=== PATIENT | male | born 1955 | race Caucasian/White ===

== ENCOUNTER 2017-01-31 13:28 | Inpatient (IN) | payer BC ==
--- NOTE | 2017-01-31 14:13 | ED ---
General Adult HPI - General Chief complaint: Chest Pain Stated complaint: Dr Sent/Numbness arm Time Seen by Provider: 01/31/17 13:35 Source: patient, RN notes reviewed Mode of arrival: wheelchair Limitations: no limitations - History of Present Illness Initial comments: 61-year-old male presents for evaluation one week of generalized weakness intermittent chest pain. Patient also complains of left facial numbness and left arm numbness. This has been present for approximately one week. Patient was seen by his primary care physician yesterday, had an EKG and was told to present to the emergency department for evaluation, patient declined and went to his tafe lecturer this morning. Emergency Services Dispatcher did send him in for evaluation of both chest pain and facial numbness and left arm weakness and numbness. Patient denies chest pain, evaluation. Denies shortness of breath. Denies abdominal pain. Denies nausea vomiting or diarrhea. He did have an episode of nausea on , none currently. No headache. - Related Data Home Medications Medication Instructions Recorded Confirmed Clopidogrel Bisulfate [Plavix] 75 mg PO DAILY 02/10/14 01/31/17 Furosemide [Lasix] 20 mg PO DAILY 02/10/14 01/31/17 HYDROcodone/APAP 7.5-325MG [Robertson 1 tab PO Q6HR PRN 02/10/14 01/31/17 7.5] Ibuprofen [Motrin] 800 mg PO Q8HR PRN 02/10/14 01/31/17 Lisinopril [Zestril] 5 mg PO HS 02/10/14 01/31/17 Simvastatin [Zocor] 40 mg PO HS 02/10/14 01/31/17 Carvedilol [Coreg] 12.5 mg PO BID 01/31/17 01/31/17 oxyCODONE-APAP 10-325MG [Percocet 1 tab PO DAILY PRN 01/31/17 01/31/17 10-325 mg] Allergies Allergy/AdvReac Type Severity Reaction Status Date / Time No Known Allergies Allergy Verified 01/31/17 13:54 Review of Systems ROS Statement: Those systems with pertinent positive or pertinent negative responses have been documented in the HPI. ROS Other: All systems not noted in ROS Statement are negative. Past Medical History Past Medical History: Hyperlipidemia, Hypertension, Myocardial Infarction (NM), Osteoarthritis (OA) Last Myocardial Infarction Date:: 2009 History of Any Multi-Drug Resistant Organisms: None Reported Past Surgical History: Back Surgery, Pacemaker Additional Past Surgical History / Comment(s): back surgery x 4 (fusion) [employer] SX. [facility] pacemaker with defibrillator TRIAL STIMULATOR LEAD PLACEMENT 03/07/14 Past Anesthesia/Blood Transfusion Reactions: No Reported Reaction Type of Cardiac Device: AICD Device Placement Date:: 2010 Past Psychological History: No Psychological Hx Reported Smoking Status: Current every day smoker Past Alcohol Use History: Rare Past Drug Use History: None Reported General Exam Limitations: no limitations General appearance: alert, in no apparent distress Head exam: Present: atraumatic, normocephalic Eye exam: Present: normal appearance, PERRL ENT exam: Present: normal exam Neck exam: Present: normal inspection. Absent: tenderness, meningismus Respiratory exam: Present: normal lung sounds bilaterally. Absent: respiratory distress Cardiovascular Exam: Present: regular rate, normal rhythm GI/Abdominal exam: Present: soft. Absent: distended, tenderness Extremities exam: Present: normal inspection, normal capillary refill, other ( Tenderness over the dorsal proximal forearm.). Absent: pedal edema, calf tenderness Neurological exam: Present: alert, oriented X3, CN II-XII intact, motor sensory deficit (Left-sided facial numbness, no weakness.) Psychiatric exam: Present: normal affect, normal mood Skin exam: Present: warm, dry, intact. Absent: cyanosis, diaphoretic Course Vital Signs 01/31/17 01/31/17 01/31/17 13:29 15:10 16:18 Temperature 97.7 F Pulse Rate 59 L 52 L 55 L Respiratory 18 18 18 Rate Blood Pressure 186/84 155/87 147/86 O2 Sat by Pulse 100 100 100 Oximetry EKG Findings - EKG Comments: EKG Findings:: EKG shows sinus bradycardia, T-wave abnormality in the lateral precordium, no ST segment elevation or depression, ventricular rate 52, para 160 , QRS duration 118, QTC 457 Medical Decision Making - Medical Decision Making 61-year-old male presenting with 2 complaints both chest pain and left arm pain , and left facial numbness and left arm weakness and numbness. Patient does have cardiac history, with ischemic cardiomyopathy. Chest x-ray is negative for acute findings, does have pacemaker defibrillator in place. CT of the brain is negative for hemorrhage. Laboratory studies reveal normal white blood cell count 9.5, hemoglobin 50.2, CK-MB mildly elevated 3.7, troponin 0.015. Given the combination of both chest pain and logical symptoms, CT angiography is obtained of both the chest and head and neck. CT angiography of head and neck reveals moderate bilateral carotid atherosclerotic change, no acute occlusion. No dissection. CT angiography of the chest negative for PE, negative for aortic dissection. Patient is chest pain-free while in the emergency department. EKG showed T- wave inversion in the lateral precordium, compared to EKG March 2014, unchanged. Patient is given aspirin before chest pain and for CVA symptoms. Patient will be admitted for further evaluation of both symptoms. Diagnosis: TIA/CVA, chest pain with abnormal EKG - Lab Data Result diagrams: 01/31/17 14:15 01/31/17 14:15 Lab Results 01/31/17 01/31/17 01/31/17 Range/Units 14:15 14:15 14:15 WBC 9.5 (3.8-10.6) k/uL RBC 4.80 (4.30-5.90) m/uL Hgb 15.2 (13.0-17.5) gm/dL Hct 44.7 (39.0-53.0) % MCV 93.1 (80.0-100.0) fL MCH 31.6 (25.0-35.0) pg MCHC 34.0 (31.0-37.0) g/dL RDW 13.8 (11.5-15.5) % Plt Count 190 (150-450) k/uL Neutrophils % 63 % Lymphocytes % 26 % Monocytes % 7 % Eosinophils % 2 % Basophils % 1 % Neutrophils # 6.0 (1.3-7.7) k/uL Lymphocytes # 2.4 (1.0-4.8) k/uL Monocytes # 0.7 (0-1.0) k/uL Eosinophils # 0.2 (0-0.7) k/uL Basophils # 0.0 (0-0.2) k/uL PT (9.0-12.0) sec INR (<1.2) APTT (22.0-30.0) sec Sodium 141 (137-145) mmol/L Potassium 4.2 (3.5-5.1) mmol/L Chloride 109 H (98-107) mmol/L Carbon Dioxide 23 (22-30) mmol/L Anion Gap 9 mmol/L BUN 13 (9-20) mg/dL Creatinine 0.78 (0.66-1.25) mg/dL Est GFR (MDRD) Af Amer >60 (>60 ml/min/1.73 sqM) Est GFR (MDRD) Non-Af >60 (>60 ml/min/1.73 sqM) Glucose 86 (74-99) mg/dL Calcium 9.2 (8.4-10.2) mg/dL Magnesium 2.0 (1.6-2.3) mg/dL Total Bilirubin 0.7 (0.2-1.3) mg/dL AST 22 (17-59) U/L ALT 29 (21-72) U/L Alkaline Phosphatase 36 L (38-126) U/L Total Creatine Kinase 165 (55-170) U/L CK-MB (CK-2) 3.7 H* (0.0-2.4) ng/mL CK-MB (CK-2) Rel Index 2.2 Troponin I 0.015 (0.000-0.034) ng/mL NT-Pro-B Natriuret Pep pg/mL Total Protein 6.8 (6.3-8.2) g/dL Albumin 4.2 (3.5-5.0) g/dL Urine Color Urine Appearance (Clear) Urine pH (5.0-8.0) Ur Specific Dunellen (1.001-1.035) Urine Protein (Negative) Urine Glucose (UA) (Negative) Urine Ketones (Negative) Urine Blood (Negative) Urine Nitrite (Negative) Urine Bilirubin (Negative) Urine Urobilinogen (<2.0) mg/dL Ur Leukocyte Esterase (Negative) 01/31/17 01/31/17 01/31/17 Range/Units 14:15 14:15 15:02 WBC (3.8-10.6) k/uL RBC (4.30-5.90) m/uL Hgb (13.0-17.5) gm/dL Hct (39.0-53.0) % MCV (80.0-100.0) fL MCH (25.0-35.0) pg MCHC (31.0-37.0) g/dL RDW (11.5-15.5) % Plt Count (150-450) k/uL Neutrophils % % Lymphocytes % % Monocytes % % Eosinophils % % Basophils % % Neutrophils # (1.3-7.7) k/uL Lymphocytes # (1.0-4.8) k/uL Monocytes # (0-1.0) k/uL Eosinophils # (0-0.7) k/uL Basophils # (0-0.2) k/uL PT 11.6 (9.0-12.0) sec INR 1.2 H (<1.2) APTT 27.2 (22.0-30.0) sec Sodium (137-145) mmol/L Potassium (3.5-5.1) mmol/L Chloride (98-107) mmol/L Carbon Dioxide (22-30) mmol/L Anion Gap mmol/L BUN (9-20) mg/dL Creatinine (0.66-1.25) mg/dL Est GFR (MDRD) Af Amer (>60 ml/min/1.73 sqM) Est GFR (MDRD) Non-Af (>60 ml/min/1.73 sqM) Glucose (74-99) mg/dL Calcium (8.4-10.2) mg/dL Magnesium (1.6-2.3) mg/dL Total Bilirubin (0.2-1.3) mg/dL AST (17-59) U/L ALT (21-72) U/L Alkaline Phosphatase (38-126) U/L Total Creatine Kinase (55-170) U/L CK-MB (CK-2) (0.0-2.4) ng/mL CK-MB (CK-2) Rel Index Troponin I (0.000-0.034) ng/mL NT-Pro-B Natriuret Pep 637 pg/mL Total Protein (6.3-8.2) g/dL Albumin (3.5-5.0) g/dL Urine Color Light Yellow Urine Appearance Clear (Clear) Urine pH 5.5 (5.0-8.0) Ur Specific Dunellen 1.008 (1.001-1.035) Urine Protein Negative (Negative) Urine Glucose (UA) Negative (Negative) Urine Ketones Negative (Negative) Urine Blood Negative (Negative) Urine Nitrite Negative (Negative) Urine Bilirubin Negative (Negative) Urine Urobilinogen <2.0 (<2.0) mg/dL Ur Leukocyte Esterase Negative (Negative) Disposition Clinical Impression: Chest pain, CVA (cerebral vascular accident) Disposition: ADMITTED IP TO THIS HOSP Condition: Stable Referrals: Porter Gonsales MD [Primary Care Provider] - 1-2 days Decision to Admit Reason: Admit from EC Decision Date: 01/31/17 Decision Time: 16:57
[2017-01-31 14:26] LABS: Basophils % (A) 1 %; CH 31.2; CHCM 33.6; Eosinophils # (A) 0.2 k/uL (0-0.7); Eosinophils % (A) 2 %; HCT 44.7 % (39.0-53.0); HGB 15.2 gm/dL (13.0-17.5); Luc # (Auto) 0.17; Luc % (Auto) 2; Lymphocytes # (A) 2.4 k/uL (1.0-4.8); Lymphocytes % (A) 26 %; MCH 31.6 pg (25.0-35.0); MCV 93.1 fL (80.0-100.0); Mean Platelet Volume 8.5; Monocytes # (A) 0.7 k/uL (0-1.0); Monocytes % (A) 7 %; Neutrophils % (A) 63 %; RDW 13.8 % (11.5-15.5); WBC 9.5 k/uL (3.8-10.6); WBC (Perox) 9.46
[2017-01-31 14:34] LABS: ALT 29 U/L (21-72); AST 22 U/L (17-59); Alkaline Phosphatase 36 U/L (38-126); Anion Gap 9 mmol/L; Blood Urea Nitrogen 13 mg/dL (9-20); Calcium 9.2 mg/dL (8.4-10.2); Carbon Dioxide 23 mmol/L (22-30); Chloride 109 mmol/L (98-107); Glucose 86 mg/dL (74-99); Non-African American GFR(MDRD) >60 (>60 ml/min/1.73 sqM); Potassium 4.2 mmol/L (3.5-5.1); Sodium 141 mmol/L (137-145); Total Bilirubin 0.7 mg/dL (0.2-1.3); Total Protein 6.8 g/dL (6.3-8.2)
[2017-01-31 14:37] LABS: INR 1.2 (<1.2); Partial Thromboplastin Time 27.2 sec (22.0-30.0); Prothrombin Time 11.6 sec (9.0-12.0)
--- NOTE | 2017-01-31 14:51 | XR ---
EXAMINATION TYPE: XR chest 2V DATE OF EXAM: 01/31/2017 COMPARISON: NONE TECHNIQUE: PA and lateral views submitted. HISTORY: Chest pain FINDINGS: The lungs are clear and there is no pneumothorax, pleural effusion, or focal pneumonia. Cardiac device and thoracic spine stimulator device noted. Arthropathy of the shoulders. No overt too lure. IMPRESSION: 1. No acute process.
--- NOTE | 2017-01-31 14:55 | CT ---
EXAMINATION TYPE: CT brain wo con DATE OF EXAM: 01/31/2017 COMPARISON: 05/22/2015 HISTORY: 61-year-old male weakness, fatigue and Left sided facial and arm numbness TECHNIQUE: Examination was done in axial plane without intravenous contrast. Coronal and sagittal r econstructions performed. CT DLP: 1072.3 mGycm Automated exposure control for dose reduction was used. FINDINGS: There is no evidence of acute intracranial hemorrhage, acute ischemic changes, mass, mass-effect, or extra-axial fluid collection. There is no effacement of cerebral sulci or basal subarachnoid cister ns. There is no hydrocephalus. There is no midline shift. Wynne-white matter distinction is preserv ed. Similar bifrontal cerebral cortical volume loss. Some mucus and mucosal thickening within the left frontal sinus and ethmoid air cells increased from prior. Mastoid air cells well pneumatized. Orbits and globes appear intact. IMPRESSION: 1. No acute intracranial abnormality seen. Similar bifrontal cerebral atrophy. 2. New mild to moderate ethmoid and left frontal sinus disease.
[2017-01-31 14:57] LABS: Troponin I 0.015 ng/mL (0.000-0.034)
[2017-01-31 14:58] LABS: Creatine Kinase MB 3.7 ng/mL (0.0-2.4)
[2017-01-31 15:14] LABS: Appearance,Urine Clear (Clear); Bilirubin,Urine Negative (Negative); Glucose,Urine (UA) Negative (Negative); Ketones,Urine Negative (Negative); Leukocyte Esterase,Urine Negative (Negative); Nitrite,Urine Negative (Negative); PH, Urine 5.5 (5.0-8.0); Protein,Urine Negative (Negative); Specific Gravity,Urine 1.008 (1.001-1.035); UA Billing (MACRO vs. MICRO) CHEM; Urobilinogen,Urine <2.0 mg/dL (<2.0)
[2017-01-31] MEDS ORDERED: ASPIRIN 325 MG TAB PO STA (15:28)
[2017-01-31] MEDS: RX INFO: IV CONTRAST WAS GIVEN 1 EACH MISC MISCELLANE PRN ×2 (15:37→15:38)
--- NOTE | 2017-01-31 16:41 | CT ---
EXAMINATION TYPE: CT angio chest DATE OF EXAM: 01/31/2017 COMPARISON: NONE HISTORY: 61-year-old male Left sided numbness. TECHNIQUE: Contiguous axial scanning of the chest performed with IV Contrast, patient injected with 8 0 mL of Omnipaque 350. Coronal/sagittal MIP reconstructions performed. CT DLP: 601.00 mGycm Automated exposure control for dose reduction was used. FINDINGS: Left anterior chest wall AICD generator with right atrial and right ventricular leads. Spinal stimula tor array centered along the mid to lower thoracic spinal canal. Heart is upper limits of normal in size without pericardial effusion. Coronary vessel calcifications are present and are remarkable for coronary artery disease. Ectasia of the upper descending thoracic aorta 3.1 cm with mild atherosclerotic arch calcifications. Scattered nonenlarged mediastinal lymph nodes are present. No thoracic lymphadenopathy by CT size cri teria. Small lipoma in the right serratus anterior measuring approximately 3.3 cm. Satisfactory opacification of the pulmonary arterial system with motion artifacts limiting some of th e subsegmental basilar left lower lobe branches. Mild to moderate diffuse bronchial wall thickening and mild emphysematous change in the upper lungs. Mild dependent atelectasis. No consolidation or pleural effusion. Visualized upper abdomen shows no gross abnormality. Bones: No osseous destructive process. IMPRESSION: 1. SOME MOTION ARTIFACTS . A COUPLE OF THE SUBSEGMENTAL BASILAR LEFT LOWER LOBE PULMONARY ARTERIAL BR ANCHES ARE LIMITED. OTHERWISE, NO EVIDENCE FOR PULMONARY EMBOLUS. 2. COPD WITH MILD EMPHYSEMA BUT WITH A PROMINENT COMPONENT OF ACUTE OR CHRONIC BRONCHITIS.
--- NOTE | 2017-01-31 16:50 | CT ---
EXAMINATION TYPE: CT angio head neck DATE OF EXAM: 01/31/2017 COMPARISON: NONE HISTORY: 61-year-old male Left sided numbness. TECHNIQUE: Contiguous axial scanning of the head and neck performed with IV Contrast, patient injecte d with 65 mL of Omnipaque 350. Coronal/sagittal MIP reconstructions performed. 3-D reconstructions ge nerated on a dedicated independent workstation. CT DLP: 538.00 mGycm Automated exposure control for dose reduction was used. FINDINGS: Head: The overall degree of intracranial arterial opacification is limited. No occlusion of the internal ca rotid, vertebral, or basilar arteries. Detailed assessment of the SORIN, MCA, and CLOTH PAINTER branches is limit ed due to the degree of opacification and adjacent venous contamination. No obvious aneurysmal change is seen though assessment is limited. NECK: Mild atherosclerotic arch calcifications. Arch vessel origins are patent. Limited assessment of the left vertebral artery origin. Some atherosclerotic calcification is present here. The vertebral arteries appear codominant. There is excessive venous contamination limiting kishor luation. The right common carotid artery is patent Moderate atherosclerotic changes at the right carotid bifurcation resulting in less than 50% narrowin g of the right carotid bulb The left common carotid artery is patent. Only mild atherosclerotic change at the left carotid bifurc ation without significant stenosis. Hypertrophy of the left greater than right lingual tonsils. IMPRESSION: NECK: 1. MODERATE ATHEROSCLEROTIC CHANGE OF THE RIGHT CAROTID BIFURCATION WITH MILD, LESS THAN 50% PROXIMAL RIGHT ICA STENOSIS. 2. MILD ATHEROSCLEROTIC CHANGE AT THE LEFT CAROTID BIFURCATION WITHOUT SIGNIFICANT LEFT ICA STENOSIS. HEAD: 3. LIMITED ASSESSMENT DUE TO THE DEGREE OF OPACIFICATION AND PROMINENT ADJACENT VENOUS CONTAMINATION. 4. NO LARGE VESSEL ICA, VERTEBRAL, OR BASILAR ARTERY OCCLUSION.
[2017-01-31] MEDS ORDERED: oxyCODONE-APAP 10-325MG 1 EACH TAB PO PRN (16:57)
[2017-01-31] MEDS: CARVEDILOL 12.5 MG TAB PO SCH (18:10)
[2017-01-31] MEDS: LISINOPRIL 5 MG TAB PO SCH (19:55)
[2017-01-31] MEDS: ATORVASTATIN 20 MG TAB PO SCH (19:55)
--- NOTE | 2017-01-31 22:56 | CONS ---
CONSULTATION DATE OF CONSULTATION: 01/31/2017. CHIEF COMPLAINT: Left-sided numbness. HISTORY OF PRESENT ILLNESS: Mr. Andres is a pleasant 61-year-old, male, who is being evaluated by the Neurology Service per the request of Dr. Gonsales for left-sided numbness. The patient started having symptoms of fatigue and atypical chest pain approximately 1 week ago. He was seen by Dr. Gonsales who recommended inpatient workup but the patient did not go to the emergency room. He then saw his java solutions architect and he was still having similar symptoms, but he then developed numbness and tingling on his left face and left upper extremity. He was advised to go to the emergency room at that time. He did arrive to [facility] Emergency Room today and he was still complaining of numbness and tingling that comes and goes involving his left face and left upper extremity. The patient does have history of myocardial infarction and is already on Plavix and aspirin. He does have a pacemaker/defibrillator implanted. A CT scan of the brain was done which showed no acute abnormalities. Bifrontal atrophy was seen. A CT angiogram of the brain was done, which showed no significant abnormalities. A CT angiogram of the neck was done which showed less than 50% stenosis involving the right internal carotid artery and no stenosis on the left side. His CBC, INR, comprehensive metabolic profile, cardiac enzymes and urinalysis were done and they were all normal except his INR was slightly elevated at 1.2. At the time of my evaluation, the patient is lying in his bed and appears to be in no acute distress. He continues to have occasional numbness on his left face mainly but he states that the intensity has improved. He denies any headache or dizziness. The patient has risk factors for strokes include his gender, tobacco dependence, dyslipidemia, history of myocardial infarction, history of hypertension. PAST MEDICAL HISTORY: Past medical history myocardial infarction, history of pacemaker/defibrillator implant, osteoarthritis, chronic low back pain, dyslipidemia, hypertension, history of lumbar spine surgeries, history of spinal cord stimulator implantation. SOCIAL HISTORY: The patient smokes 1 pack of cigarettes daily. He rarely drinks alcohol. Denies any drug use. FAMILY HISTORY: Noncontributory. HOME MEDICATIONS: Reviewed in the chart. ALLERGIES: No known drug allergies. REVIEW OF SYSTEMS: CONSTITUTIONAL: Positive for fatigue. EYES: Negative. ENT: Negative. CARDIOVASCULAR: As mentioned above. RESPIRATORY: Negative. NEUROLOGICAL: As mentioned above. GASTROINTESTINAL: Negative. GENITOURINARY: Negative. PSYCHIATRIC: Negative. ENDOCRINE: Negative. DERMATOLOGICAL: Negative. MUSCULOSKELETAL: Positive for chronic low back pain. PHYSICAL EXAM: Vital signs show a temperature of 98.2, pulse 64, respiration 18, blood pressure 155/88. GENERAL APPEARANCE: The patient is a well-developed male, who appears to be in no acute distress. HEENT: Normocephalic, atraumatic, no facial asymmetry is seen. NECK: Supple with no masses felt. CARDIOVASCULAR: Regular rate and rhythm. ABDOMEN: Nontender nondistended. Extremities showed no edema or clubbing. Neurological exam the patient is alert aware and oriented x3. Speech and language are normal. Strength is full in all 4 extremities. Sensory exam was normal to light touch in bilateral upper extremity and in the left lower extremity. He did have a reduced light touch sensation on the right lower extremity which is chronic from his lumbar spine history. No facial asymmetry is seen on cranial nerve testing and no sensory deficit is noticed on his face. No tremors or seizure-like activity is seen. No dysmetria is noticed on [id number]-finger testing. IMPRESSION: 1. Acute ischemic stroke. 2. Left-sided numbness. 3. Atypical chest pain. 4. Tobacco dependence. 5. Chronic low back pain. 6. Dyslipidemia. RECOMMENDATION: The patient's symptoms are consistent with an acute ischemic stroke. His CT scan of the brain showed no acute findings. He is unable to undergo any MRI imaging due to history of pacemaker implantation. Continue Plavix and aspirin. Continue IV hydration as tolerated. I will order a fasting lipid panel, EEG, and serum homocystine level. No significant stenosis was seen on his CT angiogram of the neck. The patient was counseled extensively on tobacco cessation. I discussed with him various treatment options regarding his chronic pain syndrome. Continue the rest of your current workup and management. I will continue to follow with you. Further recommendations to follow. Thank you, Dr. Gonsales for allowing me to participate in the care of your patient. If you have any questions, please feel free to contact me. MMDALLAS / IJN: [id number] /
[2017-02-01] MEDS: CARVEDILOL 12.5 MG TAB PO SCH ×2 (06:20→17:33)
[2017-02-01 06:30] LABS: Basophils % (A) 0 %; CH 31.5; CHCM 32.8; Eosinophils # (A) 0.2 k/uL (0-0.7); Eosinophils % (A) 2 %; HCT 42.2 % (39.0-53.0); HDW 2.25; HGB 13.7 gm/dL (13.0-17.5); Luc # (Auto) 0.21; Luc % (Auto) 3; Lymphocytes % (A) 27 %; MCH 31.2 pg (25.0-35.0); MCHC 32.4 g/dL (31.0-37.0); MCV 96.3 fL (80.0-100.0); Mean Platelet Volume 8.4; Monocytes # (A) 0.6 k/uL (0-1.0); Monocytes % (A) 8 %; Neutrophils # (A) 4.4 k/uL (1.3-7.7); Neutrophils % (A) 59 %; RBC 4.38 m/uL (4.30-5.90); RDW 13.6 % (11.5-15.5); WBC 7.4 k/uL (3.8-10.6); WBC (Perox) 7.92
[2017-02-01 07:02] LABS: ALT 26 U/L (21-72); AST 17 U/L (17-59); Alkaline Phosphatase 32 U/L (38-126); Anion Gap 5 mmol/L; Blood Urea Nitrogen 15 mg/dL (9-20); Calcium 8.8 mg/dL (8.4-10.2); Carbon Dioxide 25 mmol/L (22-30); Chloride 110 mmol/L (98-107); Cholesterol 116 mg/dL (<200); Glucose 90 mg/dL (74-99); HDL Cholesterol 33 mg/dL (40-60); Magnesium 1.9 mg/dL (1.6-2.3); Non-African American GFR(MDRD) >60 (>60 ml/min/1.73 sqM); Potassium 4.3 mmol/L (3.5-5.1); Sodium 140 mmol/L (137-145); Total Bilirubin 0.4 mg/dL (0.2-1.3); Total Protein 5.8 g/dL (6.3-8.2)
--- NOTE | 2017-02-01 07:47 | P.HPIM ---
History of Present Illness H&P Date: 02/01/17 Chief Complaint: Facial numbness and left arm weakness with chest discomfort This is a history and physical on a 61-year-old white male who saw me 2 days ago in the office complaining of chest fluttering and intermittent weakness for the last week. EKG was done which didn't show ST changes. The patient was advised to go to the emergency room but declined. 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 The patient was complaining of facial numbness and left arm weakness. Evaluation in the patient is now to admit the patient. Neurology and cardiology are now been consulted. The patient states slight improvement. But has been worried about his facial numbness. Appreciate consultants input. No significant nausea or vomiting. No diaphoresis stated. The patient has chronic history of defibrillator placement with chronic back pain. Review of Systems Constitutional: Denies chills, Denies fever Eyes: denies blurred vision, denies pain Ears, nose, mouth and throat: Denies headache, Denies sore throat Cardiovascular: Reports chest pain, Denies dyspnea on exertion, Denies edema, Denies orthopnea Respiratory: Denies cough Gastrointestinal: Denies abdominal pain, Denies diarrhea, Denies nausea, Denies vomiting Musculoskeletal: Reports low back pain Integumentary: Denies pruritus, Denies rash Neurological: Reports numbness, Denies confusion, Denies convulsions, Denies double vision Endocrine: Denies fatigue, Denies weight change Past Medical History Past Medical History: Hyperlipidemia, Hypertension, Myocardial Infarction (MD), Osteoarthritis (OA) Additional Past Medical History / Comment(s): "POST LAMINECTOMY SYNDROME" CHRONIC BACK PAIN, LUMBAR DDD Last Myocardial Infarction Date:: 2009 History of Any Multi-Drug Resistant Organisms: None Reported Past Surgical History: AICD, Back Surgery, Pacemaker Additional Past Surgical History / Comment(s): back surgery x 4 (fusion) LASIX EYE SX. [facility] [employer] pacemaker with defibrillator PLACEMENT OF NEURO STIMULATOR AND - had battery change on stimulator 2015, PAIN CLINIC PROCEDURES Past Anesthesia/Blood Transfusion Reactions: Motion Sickness Type of Cardiac Device: AICD Device Placement Date:: 2010 Smoking Status: Current every day smoker - Past Family History Mother Family Medical History: Diabetes Mellitus Father Family Medical History: Myocardial Infarction (MD) Additional Family Medical History / Comment(s): DAD FROM [place] WHEN PT WAS ONLY 2 MONTHS OLD. Medications and Allergies Home Medications Medication Instructions Recorded Confirmed Type Clopidogrel Bisulfate [Plavix] 75 mg PO DAILY 02/10/14 01/31/17 History Furosemide [Lasix] 20 mg PO DAILY 02/10/14 01/31/17 History HYDROcodone/APAP 7.5-325MG [[place] 1 tab PO Q6HR PRN 02/10/14 01/31/17 History 7.5] Ibuprofen [Motrin] 800 mg PO Q8HR PRN 02/10/14 01/31/17 History Lisinopril [Zestril] 5 mg PO HS 02/10/14 01/31/17 History Simvastatin [Zocor] 40 mg PO HS 02/10/14 01/31/17 History Carvedilol [Coreg] 12.5 mg PO BID 01/31/17 01/31/17 History oxyCODONE-APAP 10-325MG [Percocet 1 tab PO DAILY PRN 01/31/17 01/31/17 History 10-325 mg] Allergies Allergy/AdvReac Type Severity Reaction Status Date / Time No Known Allergies Allergy Verified 01/31/17 13:54 Physical Exam Vitals: Vital Signs Temp Pulse Pulse Resp BP BP Pulse Ox 02/01/17 04:00 96.9 F L 60 16 126/71 96 02/01/17 00:00 97.1 F L 55 L 16 112/61 100 01/31/17 20:00 96.9 F L 66 18 120/67 98 01/31/17 17:57 96.8 F L 59 L 18 151/78 97 01/31/17 17:25 98.2 F 64 18 155/88 98 01/31/17 16:18 55 L 18 147/86 100 01/31/17 15:10 52 L 18 155/87 100 01/31/17 13:29 97.7 F 59 L 18 186/84 100 Intake and Output 01/31/17 02/01/17 02/01/17 22:59 06:59 14:59 Intake Total 266 300 Balance 266 300 Intake: Oral 266 300 Other: Voiding Method Toilet Toilet Urinal Urinal Weight 92.1 kg - Constitutional General appearance: no acute distress - EENT Eyes: EOMI - Neck Neck: no lymphadenopathy - Respiratory Respiratory: bilateral: CTA - Cardiovascular Rhythm: regular Heart sounds: normal: S1, S2 - Gastrointestinal General gastrointestinal: soft, no tenderness - Integumentary Integumentary: no cellulitis - Neurologic Neurologic: CNII-XII intact - Musculoskeletal Musculoskeletal: no generalized weakness - Psychiatric Psychiatric: A&O x's 3, appropriate affect, intact judgment & insight Results CBC & Chem 7: 02/01/17 05:46 02/01/17 05:46 Labs: Abnormal Lab Results - Last 24 Hours (Table) 01/31/17 01/31/17 01/31/17 Range/Units 14:15 14:15 14:15 INR 1.2 H (<1.2) Chloride 109 H (98-107) mmol/L Alkaline Phosphatase 36 L (38-126) U/L CK-MB (CK-2) 3.7 H* (0.0-2.4) ng/mL Total Protein (6.3-8.2) g/dL Albumin (3.5-5.0) g/dL HDL Cholesterol (40-60) mg/dL 02/01/17 Range/Units 05:46 INR (<1.2) Chloride 110 H (98-107) mmol/L Alkaline Phosphatase 32 L (38-126) U/L CK-MB (CK-2) (0.0-2.4) ng/mL Total Protein 5.8 L (6.3-8.2) g/dL Albumin 3.4 L (3.5-5.0) g/dL HDL Cholesterol 33 L (40-60) mg/dL Assessment and Plan (1) Chest pain Current Visit: Yes Status: Acute Code(s): R07.9 - CHEST PAIN, UNSPECIFIED SNOMED Code(s): 90578577 (2) History of myocardial infarct at age less than 60 years Current Visit: No Status: Acute Code(s): I25.2 - OLD MYOCARDIAL INFARCTION SNOMED Code(s): 275673167 (3) Hypertension Current Visit: No Status: Acute Code(s): I10 - ESSENTIAL (PRIMARY) HYPERTENSION SNOMED Code(s): 37358595 (4) Post laminectomy syndrome Current Visit: No Status: Acute Code(s): M96.1 - POSTLAMINECTOMY SYNDROME, NOT ELSEWHERE CLASSIFIED SNOMED Code(s): 85209735 Plan: Rule out myocardial infraction. Neurology and cardiology consulted. Question element of TIA versus CVA. History of post laminectomy syndrome. Continue current regimen medication with anticoagulation See orders otherwise. The patient is otherwise a full code.
--- NOTE | 2017-02-01 07:57 | P.CRDCN ---
History of Present Illness Consult date: 02/01/17 Chief complaint: chest discomfort History of present illness: this is a pleasant 61-year-old gentleman who sees Dr. Russ in the office as an outpatient with known CAD, severe ischemic cardiomyopathy and status post ICD , hypertension, and dyslipidemia, was referred directly from Dr. Berry to the hospital for further evaluation off left sided numbness/weakness. The patient was in the office yesterday for a follow-up visit and he was complaining of intermittent episodes of left sided weakness associated with left we fascial numbness. Beside that he was experiencing very mild and atypical chest discomfort. In view of that he was referred directly to the hospital. The cardiac workup including the EKG showed sinus rhythm with old inferior SD and diffuse ST changes seems to be the same as before. The cardiac enzymes were checked and came in to be unremarkable. The chest x-ray did not show any acute abnormality. The CTA of the chest did not show any evidence of PE. The patient was seen by a neurologist and he was diagnosed with acute stroke. He was on aspirin and Plavix and both are continued. There is no indication that the patient has any history of atrial fibrillation and he is not on any anticoagulation. He is on dual antiplatelet therapy Past Medical History Past Medical History: Hyperlipidemia, Hypertension, Myocardial Infarction (SD), Osteoarthritis (OA) Additional Past Medical History / Comment(s): "POST LAMINECTOMY SYNDROME" CHRONIC BACK PAIN, LUMBAR DDD Last Myocardial Infarction Date:: 2009 History of Any Multi-Drug Resistant Organisms: None Reported Past Surgical History: AICD, Back Surgery, Pacemaker Additional Past Surgical History / Comment(s): back surgery x 4 (fusion) LASIX EYE SX. ST [employer]MA pacemaker with defibrillator PLACEMENT OF NEURO STIMULATOR AND - had battery change on stimulator 2015, PAIN CLINIC PROCEDURES Past Anesthesia/Blood Transfusion Reactions: Motion Sickness Type of Cardiac Device: AICD Device Placement Date:: 2010 Smoking Status: Current every day smoker - Past Family History Mother Family Medical History: Diabetes Mellitus Father Family Medical History: Myocardial Infarction (SD) Additional Family Medical History / Comment(s): DAD FROM [place] WHEN PT WAS ONLY 2 MONTHS OLD. Medications and Allergies Home Medications Medication Instructions Recorded Confirmed Type Clopidogrel Bisulfate [Plavix] 75 mg PO DAILY 02/10/14 01/31/17 History Furosemide [Lasix] 20 mg PO DAILY 02/10/14 01/31/17 History HYDROcodone/APAP 7.5-325MG [[place] 1 tab PO Q6HR PRN 02/10/14 01/31/17 History 7.5] Ibuprofen [Motrin] 800 mg PO Q8HR PRN 02/10/14 01/31/17 History Lisinopril [Zestril] 5 mg PO HS 02/10/14 01/31/17 History Simvastatin [Zocor] 40 mg PO HS 02/10/14 01/31/17 History Carvedilol [Coreg] 12.5 mg PO BID 01/31/17 01/31/17 History oxyCODONE-APAP 10-325MG [Percocet 1 tab PO DAILY PRN 01/31/17 01/31/17 History 10-325 mg] Allergies Allergy/AdvReac Type Severity Reaction Status Date / Time No Known Allergies Allergy Verified 01/31/17 13:54 Physical Exam Vitals: Vital Signs Temp Pulse Pulse Resp BP BP Pulse Ox 02/01/17 04:00 96.9 F L 60 16 126/71 96 02/01/17 00:00 97.1 F L 55 L 16 112/61 100 01/31/17 20:00 96.9 F L 66 18 120/67 98 01/31/17 17:57 96.8 F L 59 L 18 151/78 97 01/31/17 17:25 98.2 F 64 18 155/88 98 01/31/17 16:18 55 L 18 147/86 100 01/31/17 15:10 52 L 18 155/87 100 01/31/17 13:29 97.7 F 59 L 18 186/84 100 Intake and Output 01/31/17 02/01/17 02/01/17 22:59 06:59 14:59 Intake Total 266 300 Balance 266 300 Intake: Oral 266 300 Other: Voiding Method Toilet Toilet Urinal Urinal Weight 92.1 kg - Constitutional General appearance: no acute distress - Respiratory Respiratory: bilateral: CTA - Cardiovascular Rhythm: regular Heart sounds: normal: S1, S2 Results 02/01/17 05:46 02/01/17 05:46 Cardiac Enzymes 01/31/17 01/31/17 01/31/17 Range/Units 14:15 14:15 19:55 AST 22 (17-59) U/L CK-MB (CK-2) 3.7 H* (0.0-2.4) ng/mL Troponin I 0.015 0.018 (0.000-0.034) ng/mL 02/01/17 02/01/17 02/01/17 Range/Units 02:14 05:46 05:46 AST 17 (17-59) U/L CK-MB (CK-2) (0.0-2.4) ng/mL Troponin I 0.022 0.023 (0.000-0.034) ng/mL Coagulation 01/31/17 Range/Units 14:15 PT 11.6 (9.0-12.0) sec APTT 27.2 (22.0-30.0) sec Lipids 02/01/17 Range/Units 05:46 Triglycerides 99 (<150) mg/dL Cholesterol 116 (<200) mg/dL HDL Cholesterol 33 L (40-60) mg/dL CBC 01/31/17 02/01/17 Range/Units 14:15 05:46 WBC 9.5 7.4 (3.8-10.6) k/uL RBC 4.80 4.38 (4.30-5.90) m/uL Hgb 15.2 13.7 (13.0-17.5) gm/dL Hct 44.7 42.2 (39.0-53.0) % Plt Count 190 175 (150-450) k/uL Comprehensive Metabolic Panel 01/31/17 02/01/17 Range/Units 14:15 05:46 Sodium 141 140 (137-145) mmol/L Potassium 4.2 4.3 (3.5-5.1) mmol/L Chloride 109 H 110 H (98-107) mmol/L Carbon Dioxide 23 25 (22-30) mmol/L BUN 13 15 (9-20) mg/dL Creatinine 0.78 0.85 (0.66-1.25) mg/dL Glucose 86 90 (74-99) mg/dL Calcium 9.2 8.8 (8.4-10.2) mg/dL AST 22 17 (17-59) U/L ALT 29 26 (21-72) U/L Alkaline Phosphatase 36 L 32 L (38-126) U/L Total Protein 6.8 5.8 L (6.3-8.2) g/dL Albumin 4.2 3.4 L (3.5-5.0) g/dL Current Medications Generic Name Dose Route Start Last Admin Trade Name Bowen PRN Reason Stop Dose Admin Aspirin 325 mg 02/01/17 09:00 Aspirin PO DAILY [facility] Atorvastatin Calcium 20 mg 01/31/17 21:00 01/31/17 19:55 Lipitor PO 20 mg HS LARA Administration Carvedilol 12.5 mg 01/31/17 17:30 02/01/17 06:20 Coreg PO 12.5 mg BID-W/MEALS LARA Administration Clopidogrel Bisulfate 75 mg 02/01/17 09:00 Plavix PO DAILY [facility] Furosemide 20 mg 02/01/17 09:00 Lasix PO DAILY [facility] Lisinopril 5 mg 01/31/17 21:00 01/31/17 19:55 Zestril PO 5 mg HS LARA Administration Miscellaneous Information 1 each 01/31/17 15:28 01/31/17 15:38 Rx Info: Iv Contrast Was Given MISCELLANE 02/02/17 15:28 1 each DAILY PRN Administration Per Protocol Oxycodone/Acetaminophen 1 each 01/31/17 16:57 Percocet 10-325 PO DAILY PRN Moderate Pain Intake and Output 01/31/17 02/01/17 02/01/17 22:59 06:59 14:59 Intake Total 266 300 Balance 266 300 Intake: Oral 266 300 Other: Voiding Method Toilet Toilet Urinal Urinal Weight 92.1 kg 02/01/17 05:46 02/01/17 05:46 Assessment and Plan Assessment: this is a pleasant 61-year-old gentleman was known CAD, severe ischemic cardiomyopathy, as well as hypertension and dyslipidemia was admitted to the hospital with left sided weakness intermittently. He was diagnosed with acute stroke. Initial computed tomography scan did not show any acute abnormalities. Beside that he was experiencing very mild and atypical chest discomfort. Overall the cardiac workup came in to be unremarkable. I would not proceed with any further cardiac workup regarding the chest discomfort at this point in the process of an acute stroke. We will obtain an echocardiogram was Doppler. Obtain the previous medical records from the office. Anyway the chest discomfort was very mild and atypical. He is on dual antiplatelet therapy which we will continue. We'll continue following up with him.
[2017-02-01] MEDS: ASPIRIN 325 MG TAB PO SCH (08:34)
[2017-02-01] MEDS: FUROSEMIDE 20 MG TAB PO SCH (08:35)
[2017-02-01] MEDS: CLOPIDOGREL 75 MG TAB PO SCH (08:35)
--- NOTE | 2017-02-01 11:05 | ECHOF ---
Referral Reason:stroke MEASUREMENTS -------- HEIGHT: 172.7 cm WEIGHT: 92.1 kg BP: IVSd: 1.7 cm (0.6 - 1.1) LVIDd: 6.4 cm (3.9 - 5.3) LVPWd: 1.2 cm (0.6 - 1.1) IVSs: 2.1 cm LVIDs: 4.8 cm LVPWs: 1.4 cm LAESV Index (A-L): 38.29 ml/m Ao Diam: 3.2 cm (2.0 - 3.7) AV Cusp: 1.7 cm (1.5 - 2.6) LA Diam: 2.8 cm (2.7 - 3.8) EPSS: 2.1 cm MV E Reagan: 0.60 m/s MV DecT: 206 ms MV A Reagan: 0.57 m/s MV E/A Ratio: 1.06 RAP: 5.00 mmHg RVSP: 27.35 mmHg MV EF SLOPE: 108.76 mm/s (70 - 150) MV EXCURSION: 2.02 cm (> 18.000) FINDINGS -------- Sinus rhythm. Pacerwire seen in RV and RA. This was a technically adequate study. The left ventricle is moderately dilated. There is moderate concentric left ventricular hypertrophy . Overall left ventricular systolic function is severely impaired with, an EF between 20 - 25 %. Mid anterior LV wall motion is akinetic. Mid anteroseptal LV wall motion is akinetic. Apical an terior LV wall motion is akinetic. Apical septum LV wall motion is akinetic. Possible apical th rombus. The right ventricle is normal in size and function. LA is moderately dilated 34-39 ml/m2 The right atrium is normal in size. 1.5mg of Definity was utilized for enhancement of images The aortic valve is trileaflet, and appears structurally normal. No aortic stenosis or regurgitation. The mitral valve leaflets are mildly thickened. Moderate mitral regurgitation is present. Mild tricuspid regurgitation present. There is no evidence of pulmonary hypertension. There is no pulmonic regurgitation present. The mass is located in the apical portion of the left ventricle. The aortic root size is normal. Normal inferior vena cava with normal inspiratory collapse consistent with estimated right atrial pre ssure of 5 mmHg. There is no pericardial effusion. CONCLUSIONS -------- 1. Sinus rhythm. 2. Pacerwire seen in RV and RA. 3. This was a technically adequate study. 4. The left ventricle is moderately dilated. 5. There is moderate concentric left ventricular hypertrophy. 6. Overall left ventricular systolic function is severely impaired with, an EF between 20 - 25 %. 7. Mid anterior LV wall motion is akinetic. 8. Mid anteroseptal LV wall motion is akinetic. 9. Apical anterior LV wall motion is akinetic. 10. Apical septum LV wall motion is akinetic. 11. Possible apical thrombus. 12. LA is moderately dilated 34-39 ml/m2 13. 1.5mg of Definity was utilized for enhancement of images 14. The aortic valve is trileaflet, and appears structurally normal. No aortic stenosis or regurgitat ion. 15. The mitral valve leaflets are mildly thickened. 16. Mild tricuspid regurgitation present. 17. There is no evidence of pulmonary hypertension. 18. There is no pulmonic regurgitation present. 19. The mass is located in the apical portion of the left ventricle. 20. The aortic root size is normal. 21. Normal inferior vena cava with normal inspiratory collapse consistent with estimated right atrial pressure of 5 mmHg. 22. There is no pericardial effusion. STONE SPLITTER: Shannan Mendoza RDCS
--- NOTE | 2017-02-01 13:48 | P.PN ---
Subjective Progress Note Date: 02/01/17 Patient is a pleasant 61-year-old male who is being followed by the neurology service for left-sided numbness. Patient states symptoms of fatigue and atypical chest pain began approximately a week ago for which she saw cardiology for. Since then he had developed numbness and tingling in his left face and left upper extremity. He came to [facility] emergency room for further evaluation. Patient was taking Plavix and aspirin in the home setting due to history of myocardial infarction. He does have pacemaker/ defibrillator implanted. Computed tomography scan of the brain was done which showed no acute abnormalities. His CT angiogram of the brain was done which showed no significant abnormalities. A CT angiogram of the neck was also done which showed less than 50% stenosis in the right internal carotid artery and no stenosis on the left side. At the time of my evaluation, patient is resting comfortably in bed and appears to be in no acute distress. Patient continues to report occasional numbness in the left side of the face. Patient does have multiple risk factors for stroke including history of myocardial infarction, hypertension, tobacco dependence, and dyslipidemia. Objective - Vital Signs Vital signs: Vital Signs Temp 96.9 F L 02/01/17 12:00 Pulse 58 L 02/01/17 12:00 Resp 18 02/01/17 12:00 BP 138/73 02/01/17 12:00 Pulse Ox 98 02/01/17 12:00 Intake & Output 01/31/17 02/01/17 02/01/17 18:59 06:59 18:59 Intake Total 266 300 Output Total 825 Balance 266 300 -825 Weight 94.347 kg 92.1 kg Intake: Oral 266 300 Output: Urine 825 Other: Voiding Method Toilet Urinal - Exam PHYSICAL EXAM: GENERAL APPEARANCE: Patient is a well-developed, male who appears to be in no acute distress. HEENT: Normocephalic, atraumatic, no facial asymmetry is seen. Neck is supple with no masses felt. CARDIOVASCULAR: Regular rate and rhythm. ABDOMEN: Nontender, nondistended. EXTREMITIES: Show no edema or clubbing. NEUROLOGICAL EXAM: Patient is awake, alert, and oriented 3. Speech and language are normal. Strength is full in all 4 extremities. Sensory exam was normal to light touch in all 4 extremities except mildly decreased in the left lower extremity which is chronic from previous surgery. No facial asymmetry is seen on cranial nerve testing. No sensory deficit is noted on his face. No tremors or seizure-like activity is seen. - Labs CBC & Chem 7: 02/01/17 05:46 02/01/17 05:46 Labs: Abnormal Lab Results - Last 24 Hours (Table) 01/31/17 01/31/17 01/31/17 Range/Units 14:15 14:15 14:15 INR 1.2 H (<1.2) Chloride 109 H (98-107) mmol/L Alkaline Phosphatase 36 L (38-126) U/L CK-MB (CK-2) 3.7 H* (0.0-2.4) ng/mL Total Protein (6.3-8.2) g/dL Albumin (3.5-5.0) g/dL HDL Cholesterol (40-60) mg/dL 02/01/17 Range/Units 05:46 INR (<1.2) Chloride 110 H (98-107) mmol/L Alkaline Phosphatase 32 L (38-126) U/L CK-MB (CK-2) (0.0-2.4) ng/mL Total Protein 5.8 L (6.3-8.2) g/dL Albumin 3.4 L (3.5-5.0) g/dL HDL Cholesterol 33 L (40-60) mg/dL Assessment and Plan Plan: Impression: 1. Acute ischemic stroke 2. Left-sided numbness 3. Atypical chest pain 4. Chronic low back pain 5. Dyslipidemia 6. Tobacco dependence Recommendation: It does appear that patient suffered an acute ischemic stroke. Computed tomography scan of the brain showed no acute findings. As you recall, he is unable to undergo any MRI imaging due to history of pacemaker implantation. CT angiogram of the neck showed no significant stenosis. I recommend continuing Plavix and aspirin. His fasting lipid panel was normal except for low HDL of 33. Continue statin therapy. EEG and serum homocystine level results are pending. I discussed possible treatment options regarding his chronic pain syndrome which can be explored as an outpatient in the office setting. Continue current management. Continue physical therapy. I will continue to follow with you. Further recommendations to follow.
--- NOTE | 2017-02-01 19:49 | EEG ---
ELECTROENCEPHALOGRAM REPORT CHIEF COMPLAINT: Stroke. DESCRIPTION OF THE PROCEDURE: This EEG was performed using a 21-channel digital electroencephalograph, following international 10-20 system. DESCRIPTION OF THE RECORDING: From the beginning of the tracing, and with patient's eyes closed, the background rhythm was mostly consisting of 9 Hz alpha frequency in the posterior occipital leads. No obvious asymmetry is seen. Photic stimulation was performed with a good driving response seen. No pathological waves were elicited. Hyperventilation was not performed. Frequent movement artifacts are seen later in the tracing. The patient remains awake throughout the tracing. No epileptiform discharges were seen. His EKG lead showed a regular rate and rhythm. INTERPRETATION: This awake EEG can be considered within normal limits. There was no asymmetry seen. No epileptiform discharges were noticed. The absence of epileptiform discharges does not rule out the diagnosis of epilepsy; therefore clinical correlation is recommended. MMDALLAS / IJMirtha: [id number] /
[2017-02-01] MEDS: LISINOPRIL 5 MG TAB PO SCH (21:02)
[2017-02-01] MEDS: ATORVASTATIN 20 MG TAB PO SCH (21:02)
[2017-02-02] MEDS: CARVEDILOL 12.5 MG TAB PO SCH ×2 (06:31→16:59)
--- NOTE | 2017-02-02 07:28 | P.DS ---
Providers Date of admission: 01/31/17 16:46 Attending physician: Porter Gonsales Consults: 01/31/17 16:47 Consult Physician Urgent Consulting Provider: Alejo Bazzi Consult Reason/Comments: CVA/TIA Do you want consulting provider notified?: Yes Consult Physician Urgent Consulting Provider: Stas Villalobos Consult Reason/Comments: Chest pain, EKG changes Do you want consulting provider notified?: Yes, Notify in am Primary care physician: Porter Gonsales - Discharge Diagnosis(es) (1) Chest pain Current Visit: Yes Status: Acute (2) History of myocardial infarct at age less than 60 years Current Visit: No Status: Acute (3) Hypertension Current Visit: No Status: Acute (4) Post laminectomy syndrome Current Visit: No Status: Acute Hospital Course: This is a discharge summary on a 61-year-old white male essentially admitted for left facial numbness. He was felt to have CVA. But because of his history of pacemaker/AICD placement, he is unable have an MRI. CTA with CT of the head does not show significant abnormality. He is already on Plavix and aspirin. He will be discharged once cleared by neurology. Symptoms have not completely resolved but there waxing and waning. The patient will follow-up with me in approximately 3-4 days. Patient Condition at Discharge: Stable Plan - Discharge Summary Discharge Rx Participant: No New Discharge Prescriptions: No Action Ibuprofen [Motrin] 800 mg PO Q8HR PRN PRN Reason: Mild To Moderate Pain Simvastatin [Zocor] 40 mg PO HS Lisinopril [Zestril] 5 mg PO HS HYDROcodone/APAP 7.5-325MG [[place] 7.5] 1 tab PO Q6HR PRN PRN Reason: Moderate To Severe Pain Furosemide [Lasix] 20 mg PO DAILY Clopidogrel Bisulfate [Plavix] 75 mg PO DAILY oxyCODONE-APAP 10-325MG [Percocet 10-325 mg] 1 tab PO DAILY PRN PRN Reason: Pain Carvedilol [Coreg] 12.5 mg PO BID Discharge Medication List Clopidogrel Bisulfate [Plavix] 75 mg PO DAILY 02/10/14 [History] Furosemide [Lasix] 20 mg PO DAILY 02/10/14 [History] HYDROcodone/APAP 7.5-325MG [[place] 7.5] 1 tab PO Q6HR PRN 02/10/14 [History] Ibuprofen [Motrin] 800 mg PO Q8HR PRN 02/10/14 [History] Lisinopril [Zestril] 5 mg PO HS 02/10/14 [History] Simvastatin [Zocor] 40 mg PO HS 02/10/14 [History] Carvedilol [Coreg] 12.5 mg PO BID 01/31/17 [History] oxyCODONE-APAP 10-325MG [Percocet 10-325 mg] 1 tab PO DAILY PRN 01/31/17 [ History] Follow up Appointment(s)/Referral(s): Alejo Bazzi MD [STAFF PHYSICIAN] - 1 Week Porter Gonsales MD [Primary Care Provider] - 3 Days
[2017-02-02] MEDS: ASPIRIN 325 MG TAB PO SCH (08:00)
[2017-02-02] MEDS: FUROSEMIDE 20 MG TAB PO SCH (08:01)
[2017-02-02] MEDS: CLOPIDOGREL 75 MG TAB PO SCH (08:01)
--- NOTE | 2017-02-02 11:13 | P.PN ---
Subjective Progress Note Date: 02/02/17 Principal diagnosis: RASHAWN Is a pleasant 61-year-old gentleman who follows regularly with Dr. Dsouza in the office as an outpatient. He has a known history of coronary artery disease, severe ischemic cardiomyopathy with prior AICD implant, hypertension, hyperlipidemia, he was referred to the hospital from Dr. Berry because of evidence of left-sided numbness and weakness. Patient's EKG showed evidence of old inferior wall [place] with diffuse ST-T wave changes, similar to prior. Cardiac enzymes were checked and came back to be unremarkable. CTA did not reveal any evidence of a pulmonary embolism. Patient is also being followed here by neurology who felt the patient may have had an acute stroke. He cannot have an MRI performed because of AICD placement. At the time of my examination this morning, patient still has mild left-sided numbness, he is hemodynamically stable. Objective - Vital Signs Vital signs: Vital Signs Temp 97.0 F L 02/02/17 08:00 Pulse 54 L 02/02/17 08:00 Resp 18 02/02/17 08:00 BP 107/61 02/02/17 08:00 Pulse Ox 97 02/02/17 08:00 Intake & Output 02/01/17 02/02/17 02/02/17 18:59 06:59 18:59 Intake Total 200 600 Output Total 825 500 Balance -625 100 Weight 92.1 kg Intake: Oral 200 600 Output: Urine 825 500 Other: Voiding Method Toilet Toilet Urinal Urinal - Exam PHYSICAL EXAMINATION: HEENT: Head is atraumatic, normocephalic. Pupils equal, round. Neck is supple. There is no elevated jugular venous pressure. HEART EXAMINATION: Heart S1, S2 normal. No murmur or gallop heard. CHEST EXAMINATION: Lungs are clear to auscultation and precussion. No chest wall tenderness is noted on palpation or with deep breathing. ABDOMEN: Soft, nontender. Bowel sounds are heard. No organomegaly noted. EXTREMITIES: 2+ peripheral pulses with no evidence of peripheral edema and no calf tenderness noted. NEUROLOGIC patient is awake, alert and oriented -3. Mild left arm numbness. . - Labs CBC & Chem 7: 02/01/17 05:46 02/01/17 05:46 Assessment and Plan Plan: Assessment and plan #1 intermittent left-sided weakness, possible acute stroke. Initial CT did not reveal any acute abnormalities. #2 hypertension #3 atypical chest discomfort was unremarkable troponins and no significant EKG changes. #4 ischemic cardiomyopathy with prior AICD #5 coronary artery disease #6 hyperlipidemia Plan Echocardiogram with Doppler study was performed which revealed an ejection fraction of 20-25%. Possible apical thrombus. Hemodynamically stable. Patient cannot undergo an MRI because of his device, may require a KIKI to evaluate for possible thrombus. Further recommendations to follow. DNP note has been reviewed, I agree with a documented findings and plan of care. Patient was seen and examined.
--- NOTE | 2017-02-02 14:55 | P.PN ---
Progress Note - Text Progress Note Date: 02/02/17 This is an addendum to the progress note dictated earlier by cardiology, because of the suspicion of a possible apical thrombus on transthoracic echo along with the fact that the patient has a low ejection fraction, he was advised to be initiated on Coumadin. He was taking Plavix at home, no history of stent, taking it for coronary artery disease. We will discontinue the Plavix , continue the baby aspirin, and initiate the patient on Coumadin. This was all explained to the patient in detail. DNP note has been reviewed, I agree with a documented findings and plan of care. Patient was seen and examined.
--- NOTE | 2017-02-02 15:26 | P.PN ---
Subjective Progress Note Date: 02/02/17 Patient is a pleasant 61-year-old male who is being followed by the neurology service for left-sided numbness. Patient states symptoms of fatigue and atypical chest pain began approximately a week ago for which he saw cardiology for. Since then he had developed numbness and tingling in his left face and left upper extremity. He came to [facility] emergency room for further evaluation. Patient was taking Plavix and aspirin in the home setting due to history of myocardial infarction. He does have pacemaker/ defibrillator implanted. Computed tomography scan of the brain was done which showed no acute abnormalities. His CT angiogram of the brain was done which showed no significant abnormalities. A CT angiogram of the neck was also done which showed less than 50% stenosis in the right internal carotid artery and no stenosis on the left side. At the time of my evaluation, patient is resting comfortably in bed and appears to be in no acute distress. Patient continues to report occasional numbness in the left side of the face. Patient does have multiple risk factors for stroke including history of myocardial infarction, hypertension, tobacco dependence, and dyslipidemia. 02/02/2017 Patient is a pleasant 61-year-old male who is being followed by the neurology service for left-sided numbness. Patient states left-sided numbness is slowly resolving. Patient reports only minimal left facial numbness remains. As you recall, patient is unable to have an MRI due to AICD. Patient underwent trans-thoracic echocardiogram which revealed possible apical thrombus. Patient was started on Coumadin and Plavix was discontinued. CT angiogram of the brain showed no significant abnormalities. CT angiogram of the neck was also done which showed less than 50% stenosis in the right internal carotid artery and no stenosis on the left internal carotid artery. At the time of my evaluation, patient is resting comfortably in bed and appears to be in no acute distress. Objective - Vital Signs Vital signs: Vital Signs Temp 98.2 F 02/02/17 12:00 Pulse 57 L 02/02/17 12:00 Resp 18 02/02/17 12:00 BP 116/60 02/02/17 12:00 Pulse Ox 95 02/02/17 12:00 Intake & Output 02/01/17 02/02/17 02/02/17 18:59 06:59 18:59 Intake Total 200 600 200 Output Total 825 500 300 Balance -625 100 -100 Weight 92.1 kg Intake: Oral 200 600 200 Output: Urine 825 500 300 Other: Voiding Method Toilet Toilet Urinal Urinal # Voids 2 - Exam PHYSICAL EXAM: GENERAL APPEARANCE: Patient is a well-developed, male who appears to be in no acute distress. HEENT: Normocephalic, atraumatic, no facial asymmetry is seen. Neck is supple with no masses felt. CARDIOVASCULAR: Regular rate and rhythm. ABDOMEN: Nontender, nondistended. EXTREMITIES: Show no edema or clubbing. NEUROLOGICAL EXAM: Patient is awake, alert, and oriented 3. Speech and language are normal. Strength is full in all 4 extremities. Sensory exam was normal to light touch in all 4 extremities except mildly decreased in the left lower extremity which is chronic from previous spinal surgery. No facial asymmetry is seen on cranial nerve testing. No sensory deficit is noted on his face. No tremors or seizure-like activity is seen. - Labs CBC & Chem 7: 02/01/17 05:46 02/01/17 05:46 Assessment and Plan Plan: Impression: 1. Acute ischemic stroke 2. Left-sided numbness 3. Atypical chest pain 4. Chronic low back pain 5. Dyslipidemia 6. Tobacco dependence Recommendation: It does appear that patient suffered an acute ischemic stroke. Computed tomography scan of the brain showed no acute findings. As you recall, he is unable to undergo any MRI imaging due to history of pacemaker implantation. CT angiogram of the neck showed no significant stenosis. Possible apical thrombus was found on transthoracic echo. He will be started on Coumadin and continue aspirin per cardiology. His fasting lipid panel was normal except for low HDL of 33. Continue statin therapy. EEG was normal. Serum homocystine level is within normal limits. I discussed possible treatment options regarding his chronic pain syndrome which can be explored as an outpatient in the office setting. Patient was counseled on tobacco cessation. Continue current management. Continue physical therapy. Patient is stable from a neurological standpoint for discharge. I will continue to follow with you on an as-needed basis. Feel free to call with any questions or concerns. I performed an examination of the patient and discussed the management with the ACCESSORIES REPAIRER. I have reviewed the ACCESSORIES REPAIRER notes and agree with the findings and plan of care.
[2017-02-02] MEDS ORDERED: WARFARIN 5 MG TAB PO ONE (18:00)
[2017-02-02] MEDS: LISINOPRIL 5 MG TAB PO SCH (20:51)
[2017-02-02] MEDS: ATORVASTATIN 20 MG TAB PO SCH (20:51)
[2017-02-03 06:28] LABS: INR 1.1 (<1.2); Prothrombin Time 11.4 sec (9.0-12.0)
[2017-02-03] MEDS: CARVEDILOL 12.5 MG TAB PO SCH ×2 (06:30→17:48)
--- NOTE | 2017-02-03 07:40 | P.PN ---
Subjective Progress Note Date: 02/03/17 Principal diagnosis: Impression a 61-year-old white male essentially admitted for CVA with chest pain. Echocardiogram does show possible apical thrombus. He is now been transitioned to Coumadin at this time. We will give him 7.5 mg daily and check PT/INR. Dr. Laboy's group will be covering for the weekend. No sniffing chest pain but still some left-sided numbness and facial numbness on the left side surprisingly. Objective - Vital Signs Vital signs: Vital Signs Temp 97.1 F L 02/03/17 04:00 Pulse 57 L 02/03/17 04:00 Resp 16 02/03/17 04:00 BP 135/74 02/03/17 04:00 Pulse Ox 97 02/03/17 04:00 Intake & Output 02/02/17 02/03/17 02/03/17 18:59 06:59 18:59 Intake Total 200 Output Total 900 300 Balance -700 -300 Weight 93.5 kg Intake: Oral 200 Output: Urine 900 300 Other: Voiding Method Toilet Toilet Urinal Urinal # Voids 2 1 - Constitutional General appearance: Present: average body habitus - EENT Eyes: Absent: abnormal pupil - Neck Neck: Absent: lymphadenopathy Thyroid: bilateral: normal size - Respiratory Respiratory: bilateral: CTA - Cardiovascular Rhythm: regular Heart sounds: normal: S1, S2 - Gastrointestinal General gastrointestinal: Absent: tenderness - Neurologic Neurologic: Present: CNII-XII intact - Psychiatric Psychiatric: Present: A&O x's 3 - Labs CBC & Chem 7: 02/01/17 05:46 02/01/17 05:46 Assessment and Plan (1) Chest pain Current Visit: Yes Status: Acute Code(s): R07.9 - CHEST PAIN, UNSPECIFIED SNOMED Code(s): 61629863 (2) History of myocardial infarct at age less than 60 years Current Visit: No Status: Acute Code(s): I25.2 - OLD MYOCARDIAL INFARCTION SNOMED Code(s): 922160364 (3) Hypertension Current Visit: No Status: Acute Code(s): I10 - ESSENTIAL (PRIMARY) HYPERTENSION SNOMED Code(s): 29199995 (4) Post laminectomy syndrome Current Visit: No Status: Acute Code(s): M96.1 - POSTLAMINECTOMY SYNDROME, NOT ELSEWHERE CLASSIFIED SNOMED Code(s): 04112947 (5) CVA (cerebral vascular accident) Current Visit: Yes Status: Acute Code(s): I63.9 - CEREBRAL INFARCTION, UNSPECIFIED SNOMED Code(s): 166637527 Plan: Anticipate discharge once PT/INR is therapeutic. We'll continue to follow with neurology. Dr. Benoit garcia is covering for the weekend. Check CBC, CMP with PT/INR in the a.m. Time with Patient: Less than 30
[2017-02-03] MEDS: FUROSEMIDE 20 MG TAB PO SCH (08:30)
[2017-02-03] MEDS: ASPIRIN 81 MG PO SCH (08:30)
--- NOTE | 2017-02-03 15:40 | P.PN ---
Subjective Progress Note Date: 02/03/17 Principal diagnosis: CVA This is a pleasant 61-year-old gentleman who follows with Dr. Oneal in the office. He has a known history of coronary artery disease, severe ischemic cardiomyopathy with prior AICD implant, hypertension, hyperlipidemia. He was sent to the hospital by Dr. Berry who saw the patient and the office who had complaints of left-sided numbness and weakness as well as some chest discomfort. His EKG showed evidence of old inferior wall [place] with diffuse ST-T wave changes, similar to prior. Ends came back to be unremarkable. CTA did not reveal any evidence for PE. He underwent 2-D echo with Doppler that was suspicious for possible apical thrombus and a severely impaired LV systolic function with an ejection fraction between 20-25%. He was initiated on Coumadin. Upon examination, patient is resting fairly in bed. His left-sided facial numbness has resolved. Objective - Vital Signs Vital signs: Vital Signs Temp 97.1 F L 02/03/17 12:00 Pulse 50 L 02/03/17 12:00 Resp 16 02/03/17 12:00 BP 136/79 02/03/17 12:00 Pulse Ox 97 02/03/17 12:00 Intake & Output 02/02/17 02/03/17 02/03/17 18:59 06:59 18:59 Intake Total 200 600 Output Total 672 881 7348 Balance -700 -300 -650 Weight 93.5 kg Intake: Oral 200 600 Output: Urine 549 645 7919 Other: Voiding Method Toilet Toilet Toilet Urinal Urinal Urinal # Voids 2 1 - Exam PHYSICAL EXAMINATION: HEENT: Head is atraumatic, normocephalic. Pupils equal, round. Neck is supple. There is no elevated jugular venous pressure. HEART EXAMINATION: Heart sounds regular, S1 and S2 normal. No murmur or gallop heard. CHEST EXAMINATION: Lungs are clear to auscultation and precussion. No chest wall tenderness is noted on palpation or with deep breathing. ABDOMEN: Soft, nontender. Bowel sounds are heard. No organomegaly noted. EXTREMITIES: 2+ peripheral pulses with no evidence of peripheral edema and no calf tenderness noted. NEUROLOGIC patient is awake, alert and oriented x3. . - Labs CBC & Chem 7: 02/01/17 05:46 11/01/17 05:46 Assessment and Plan Assessment: #1 intermittent left-sided weakness, possible CVA, initial CT did not reveal any acute abnormalities. #2 hypertension #3 atypical chest discomfort with negative cardiac enzymes and no significant EKG changes #4 ischemic cardiomyopathy with prior AICD placement #5 coronary artery disease #6 hyperlipidemia #7 possible apical thrombus noted on transthoracic echo Plan: From cardiology's perspective, continue Coumadin for possible apical thrombus. We'll continue to follow patient during this admission and 5 further recommendations accordingly. REGISTERED NURSE TEACHER note has been reviewed, I agree with a documented findings and plan of care. Patient was seen and examined.
[2017-02-03] MEDS: WARFARIN 7.5 MG TAB PO SCH (17:49)
[2017-02-03] MEDS: LISINOPRIL 5 MG TAB PO SCH (21:08)
[2017-02-03] MEDS: ATORVASTATIN 20 MG TAB PO SCH (21:08)
[2017-02-04 06:16] LABS: CH 31.8; CHCM 32.6; HCT 49.5 % (39.0-53.0); HDW 2.24; HGB 15.9 gm/dL (13.0-17.5); MCH 31.5 pg (25.0-35.0); MCHC 32.1 g/dL (31.0-37.0); Mean Platelet Volume 8.5; RBC 5.05 m/uL (4.30-5.90); RDW 13.6 % (11.5-15.5); WBC 8.5 k/uL (3.8-10.6)
[2017-02-04 06:26] LABS: INR 1.3 (<1.2)
[2017-02-04] MEDS: CARVEDILOL 12.5 MG TAB PO SCH (06:32)
[2017-02-04 06:33] LABS: ALT 28 U/L (21-72); AST 20 U/L (17-59); Alkaline Phosphatase 35 U/L (38-126); Anion Gap 10 mmol/L; Blood Urea Nitrogen 18 mg/dL (9-20); Calcium 9.5 mg/dL (8.4-10.2); Carbon Dioxide 26 mmol/L (22-30); Chloride 106 mmol/L (98-107); Glucose 103 mg/dL (74-99); Non-African American GFR(MDRD) >60 (>60 ml/min/1.73 sqM); Potassium 4.4 mmol/L (3.5-5.1); Sodium 142 mmol/L (137-145); Total Bilirubin 0.4 mg/dL (0.2-1.3); Total Protein 6.8 g/dL (6.3-8.2)
[2017-02-04] MEDS: ASPIRIN 81 MG PO SCH (09:13)
[2017-02-04] MEDS: FUROSEMIDE 20 MG TAB PO SCH (09:13)
[2017-02-04 10:12] VITALS: BMI 30.9
[2017-02-04 11:24] VITALS: RESP 16
--- NOTE | 2017-02-04 12:01 | P.PN ---
Subjective Progress Note Date: 02/04/17 Principal diagnosis: CVA This is a pleasant 61-year-old gentleman who follows with Dr. Oneal in the office. He has a known history of coronary artery disease, severe ischemic cardiomyopathy with prior AICD implant, hypertension, hyperlipidemia. He was sent to the hospital by Dr. Berry who saw the patient and the office who had complaints of left-sided numbness and weakness as well as some chest discomfort. His EKG showed evidence of old inferior wall [place] with diffuse ST-T wave changes, similar to prior. Ends came back to be unremarkable. CTA did not reveal any evidence for PE. He underwent 2-D echo with Doppler that was suspicious for possible apical thrombus and a severely impaired LV systolic function with an ejection fraction between 20-25%. He was initiated on Coumadin. His INR this morning is 1.3. Upon examination, patient is resting comfortably in bed. He has no complaints at this time. Objective - Vital Signs Vital signs: Vital Signs Temp 97.2 F L 02/04/17 11:23 Pulse 50 L 02/04/17 11:23 Resp 16 02/04/17 11:23 BP 125/78 02/04/17 11:23 Pulse Ox 97 02/04/17 11:23 Intake & Output 02/03/17 02/04/17 02/04/17 18:59 06:59 18:59 Intake Total 840 Output Total 1250 400 250 Balance -410 -400 -250 Weight 92.1 kg 92.1 kg Intake: Oral 840 Output: Urine 1250 400 250 Other: Voiding Method Toilet Toilet Toilet Urinal Urinal Urinal # Voids 1 - Exam PHYSICAL EXAMINATION: HEENT: Head is atraumatic, normocephalic. Pupils equal, round. Neck is supple. There is no elevated jugular venous pressure. HEART EXAMINATION: Heart sounds regular, S1 and S2 normal. No murmur or gallop heard. CHEST EXAMINATION: Lungs are clear to auscultation and precussion. No chest wall tenderness is noted on palpation or with deep breathing. ABDOMEN: Soft, nontender. Bowel sounds are heard. No organomegaly noted. EXTREMITIES: 2+ peripheral pulses with no evidence of peripheral edema and no calf tenderness noted. NEUROLOGIC patient is awake, alert and oriented x3. . - Labs CBC & Chem 7: 02/04/17 05:51 02/04/17 05:51 Labs: Abnormal Lab Results - Last 24 Hours (Table) 02/04/17 02/04/17 Range/Units 05:51 05:51 PT 13.0 H (9.0-12.0) sec INR 1.3 H (<1.2) Glucose 103 H (74-99) mg/dL Alkaline Phosphatase 35 L (38-126) U/L Assessment and Plan Assessment: #1 intermittent left-sided weakness, possible CVA, initial CT did not reveal any acute abnormalities. #2 hypertension #3 atypical chest discomfort with negative cardiac enzymes and no significant EKG changes #4 ischemic cardiomyopathy with prior AICD placement #5 coronary artery disease #6 hyperlipidemia #7 possible apical thrombus noted on transthoracic echo Plan: From cardiology's perspective, continue Coumadin for possible apical thrombus. We recommend to have the patient monitor INR closely with next INR early next week. He will follow-up with Dr. Dsouza in the office. REPAIR SERVICE DISPATCHER note has been reviewed, I agree with a documented findings and plan of care. Patient was seen and examined.
[2017-02-04 15:28] VITALS: BP 116/58; PULSE 55; TEMP 97.1
[2017-02-04] MEDS: WARFARIN 7.5 MG TAB PO SCH (15:57)
--- NOTE | 2017-03-20 22:48 | P.DS ---
Providers Date of admission: 01/31/17 16:46 Expected date of discharge: 02/04/17 Attending physician: Porter Gonsales Consults: 01/31/17 16:47 Consult Physician Urgent Consulting Provider: Alejo Bazzi Consult Reason/Comments: CVA/TIA Do you want consulting provider notified?: Yes Consult Physician Urgent Consulting Provider: Stas Villalobos Consult Reason/Comments: Chest pain, EKG changes Do you want consulting provider notified?: Yes, Notify in am Primary care physician: Porter Gonsales Hospital Course: Discharge diagnosis #1 intermittent left-sided weakness, possible CVA, initial CT did not reveal any acute abnormalities. #2 hypertension #3 atypical chest discomfort with negative cardiac enzymes and no significant EKG changes #4 ischemic cardiomyopathy with prior AICD placement #5 coronary artery disease #6 hyperlipidemia #7 possible apical thrombus noted on transthoracic echo Hospital course This is a pleasant 61-year-old with a known history of coronary artery disease, severe ischemic cardiomyopathy with prior AICD implant, hypertension, hyperlipidemia. He was sent to the hospital by Dr. Berry who saw the patient and the office who had complaints of left-sided numbness and weakness as well as some chest discomfort. His EKG showed evidence of old inferior wall [place] with diffuse ST-T wave changes, similar to prior. Ends came back to be unremarkable. CTA did not reveal any evidence for PE. He underwent 2-D echo with Doppler that was suspicious for possible apical thrombus and a severely impaired LV systolic function with an ejection fraction between 20-25%. He was initiated on Coumadin. PHYSICAL EXAMINATION: HEENT: Head is atraumatic, normocephalic. Pupils equal, round. Neck is supple. There is no elevated jugular venous pressure. HEART EXAMINATION: Heart sounds regular, S1 and S2 normal. No murmur or gallop heard. CHEST EXAMINATION: Lungs are clear to auscultation and precussion. No chest wall tenderness is noted on palpation or with deep breathing. ABDOMEN: Soft, nontender. Bowel sounds are heard. No organomegaly noted. EXTREMITIES: 2+ peripheral pulses with no evidence of peripheral edema and no calf tenderness noted. NEUROLOGIC patient is awake, alert and oriented x3. Total time taken greater than 35 minutes including 18 minutes for counseling and coordination of care. Patient Condition at Discharge: Stable Plan - Discharge Summary Discharge Rx Participant: No New Discharge Prescriptions: New Warfarin [Coumadin] 5 mg PO DAILY@1800 #30 tab Aspirin 81 mg PO DAILY #30 chew Continue Simvastatin [Zocor] 40 mg PO HS Lisinopril [Zestril] 5 mg PO HS HYDROcodone/APAP 7.5-325MG [[place] 7.5-325] 1 tab PO Q6HR PRN PRN Reason: Moderate To Severe Pain Furosemide [Lasix] 20 mg PO DAILY oxyCODONE-APAP 10-325MG [Percocet 10-325 mg] 1 tab PO DAILY PRN PRN Reason: Pain Carvedilol [Coreg] 12.5 mg PO BID Discontinued Ibuprofen [Motrin] 800 mg PO Q8HR PRN PRN Reason: Mild To Moderate Pain Clopidogrel Bisulfate [Plavix] 75 mg PO DAILY Discharge Medication List Furosemide [Lasix] 20 mg PO DAILY 02/10/14 [History] HYDROcodone/APAP 7.5-325MG [[place] 7.5-325] 1 tab PO Q6HR PRN 02/10/14 [History] Lisinopril [Zestril] 5 mg PO HS 02/10/14 [History] Simvastatin [Zocor] 40 mg PO HS 02/10/14 [History] Carvedilol [Coreg] 12.5 mg PO BID 01/31/17 [History] oxyCODONE-APAP 10-325MG [Percocet 10-325 mg] 1 tab PO DAILY PRN 01/31/17 [ History] Aspirin 81 mg PO DAILY #30 chew 02/04/17 [Rx] Warfarin [Coumadin] 5 mg PO DAILY@1800 #30 tab 02/04/17 [Rx] Follow up Appointment(s)/Referral(s): Porter Gonsales MD [Primary Care Provider] - 02/06/17 3:10 pm Alejo Bazzi MD [STAFF PHYSICIAN] - 1 Week (Spoke to receptioniost. Office will call with appointment time.) Reinier Dsouza MD [STAFF PHYSICIAN] - 03/09/17 8:15 am Patient Instructions/Handouts: How to Stop Smoking (DC), Heart Healthy Diet (DC ), Ischemic Stroke (DC) Activity/Diet/Wound Care/Special Instructions: continue Coumadin at home and obtain Protime/INR early next week Discharge Disposition: HOME SELF-CARE
== END 2017-02-04 16:04 | disposition home or self-care (01) | DRG 65 ==
LOC: EC 13:28 → 6SEL 16:46
PROVIDERS: ADMIT Family Medicine; ATTEND Family Medicine
DX: I63.9 Cerebral infarction, unspecified (principal); I82.290 Acute embolism and thrombosis of other thoracic veins; I10 Essential (primary) hypertension; R20.9 Unspecified disturbances of skin sensation; E78.5 Hyperlipidemia, unspecified; I65.21 Occlusion and stenosis of right carotid artery; F17.210 Nicotine dependence, cigarettes, uncomplicated; G89.4 Chronic pain syndrome; I25.10 Atherosclerotic heart disease of native coronary artery without angina pectoris; I25.2 Old myocardial infarction; I25.5 Ischemic cardiomyopathy; M19.90 Unspecified osteoarthritis, unspecified site; M51.36 Other intervertebral disc degeneration, lumbar region; R07.89 Other chest pain; Z79.02 Long term (current) use of antithrombotics/antiplatelets; Z79.899 Other long term (current) drug therapy; Z95.810 Presence of automatic (implantable) cardiac defibrillator; Z98.1 Arthrodesis status; Z82.49 Family history of ischemic heart disease and other diseases of the circulatory system
CPT/HCPCS: 36415; 70450; 70496; 70498; 71020; 71275; 80053; 80061; 81003; 82550; 82553; 83090; 83735; 83880; 84484; 85025; 85027; 85610; 85730; 93005; 93306; 95816; 99285

== ENCOUNTER 2017-05-25 07:41 | Day surgery (SDC) | payer BC ==
[~2017-05-25 07:41] MED LIST: PREMYELOGRAM MEDICATION REVIEW 1 EACH MISC PO NR
[2017-05-25] MEDS ORDERED: DIAZEPAM 5 MG TAB PO STA (08:32)
[2017-05-25 08:37] VITALS: TEMP 97.8
[2017-05-25 08:38] LABS: Mean Platelet Volume 7.4; Platelet Count 223 k/uL (150-450)
[2017-05-25 08:48] LABS: INR 1.1 (<1.2); Prothrombin Time 10.9 sec (9.0-12.0)
[2017-05-25] MEDS ORDERED: HYDROcodone/APAP 5-325MG 1 EACH TAB PO PRN (10:06)
[2017-05-25 12:13] VITALS: PULSE 68
[2017-05-25 12:37] VITALS: RESP 20
--- NOTE | 2017-05-25 13:14 | CT ---
EXAMINATION TYPE: CT lumbar spine w con DATE OF EXAM: 05/25/2017 COMPARISON: 12/03/2015 HISTORY: Post laminectomy syndrome CT DLP: 1146.1 mGycm CONTRAST: CT scan of the lumbar is performed with IV Contrast, patient injected with 12 mL of Omnipaque 240. TECHNIQUE: CT of the lumbar spine is performed on a spiral scan at 3 mm thick sections. Reconstructed images are performed in the coronal and sagittal planes. Study is performed post lumbar myelogram FINDINGS: There is partial visualization of an abdominal aortic aneurysm. Transverse dimension is est imated at up to 4.4 cm this is poorly visualized however. This may be slightly greater than 4.2 cm fr om the comparison study. T12-L1: No focal disc herniation or significant disc bulge is evident. No spinal canal stenosis or neural foraminal stenosis is present. L1-L2: No focal disc herniation or significant disc bulge is evident. No spinal canal stenosis or n eural foraminal stenosis is present. Cord terminates at the L1 level. L2-L3: Endplate spurring is present. There is some associated disc material present. This has moderat e anterior thecal sac flattening. Facet hypertrophy and ligamentum flavum laxity of posterior lateral thecal sac compression. Spinal canal narrowing is present. Stenosis appears be present posterior to the superior endplate of L2 estimated at 0.7 cm. Findings may be progressive from 12/03/2015. Degenerat ni disc changes are present with loss of disc height L3-L4: No focal disc herniation or significant disc bulge is evident. No spinal canal stenosis or n eural foraminal stenosis is present L4-L5: There is a laminectomy present. Along the right aspect of the spinal cord is a elongated exiti ng nerve root sheath. No spinal canal stenosis present. Neural foramen are patent. L5-S1: There is a laminectomy. Pedicle screws are present. Facet hypertrophy is present. No spinal ca nal stenosis or neural foraminal stenosis is present. Vertebral alignment appears normal. IMPRESSION: 1. Spinal canal narrowing L2-3 secondary to endplate spurring and disc bulging. Some subligamentous d isc herniation may be present. The AP diameter is 0.7 cm at this level. This may be progressive from 2015 2. Postsurgical changes L3-S1. 3. Abdominal aortic aneurysm less well documented on the current exam. However, there is a suggestion this may be increasing in size.
[2017-05-25 14:33] VITALS: BP 119/64
--- NOTE | 2017-05-25 16:18 | FL ---
EXAMINATION TYPE: FL myelogram lumbosacral DATE OF EXAM: 05/25/2017 COMPARISON: CT lumbar spine 12/03/2015 HISTORY: Post laminectomy syndrome low back pain TECHNIQUE: The procedure was explained to the patient, risks complications and benefits. All question s were answered. Written and verbal informed consent was obtained. The L4-5 level was localized. The skin was cleansed with Betadine. The skin and deeper tissue was ane sthetized with 1% lidocaine. Under fluoroscopic control a 22-gauge spinal needle was advanced into th e thecal sac. Good CSF return was obtained. 12 mL of Omnipaque 240 was administered under fluoroscopi c observation. The stylette was replaced and the needle was withdrawn. The patient tolerated the proc edure very well. Multiple fluoroscopic imaging as well as overhead radiographs were obtained. Post procedure discharge instructions were discussed with the patient. Patient was transferred to CT for additional evaluatio n. FINDINGS: Pedicle screws are present L3-S1. There is extrinsic impression at the L4-5 level. A web ma y be present on the left some narrowing. No intraluminal defects are evident. Some L2-L3 anterior the tanya sac compression is evident on the crosstable lateral view. Please also see CT myelogram report same date. IMPRESSION: 1. Canal narrowing L4-5 on the right 2. Anterior thecal sac compression L2-L3.
== END 2017-05-25 14:15 | disposition home or self-care (01) ==
LOC: RADPROMAIN 07:41
PROVIDERS: ATTEND Physical Medicine & Rehabilitation
DX: G89.29 Other chronic pain (principal); M96.1 Postlaminectomy syndrome, not elsewhere classified; M48.061 Spinal stenosis, lumbar region without neurogenic claudication; M51.26 Other intervertebral disc displacement, lumbar region; I71.4 Abdominal aortic aneurysm, without rupture; Z95.0 Presence of cardiac pacemaker; M51.17 Intervertebral disc disorders with radiculopathy, lumbosacral region; M43.17 Spondylolisthesis, lumbosacral region; M47.27 Other spondylosis with radiculopathy, lumbosacral region; I11.9 Hypertensive heart disease without heart failure; F17.210 Nicotine dependence, cigarettes, uncomplicated; E78.5 Hyperlipidemia, unspecified; Z86.73 Personal history of transient ischemic attack (TIA), and cerebral infarction without residual deficits; Z79.1 Long term (current) use of non-steroidal anti-inflammatories (NSAID); Z79.891 Long term (current) use of opiate analgesic; Z79.899 Other long term (current) drug therapy; Z79.01 Long term (current) use of anticoagulants; Z98.1 Arthrodesis status
CPT/HCPCS: 85049; 85610; 36415; 62304; 72132; Q9966; 62284

== ENCOUNTER → 2017-06-26 | Outpatient (CLI) | payer BC ==
[2017-06-26 07:09] LABS: INR 1.1 (<1.2)
[2017-06-26 07:29] LABS: Prothrombin Time 10.5 sec (9.0-12.0)
== END | disposition home or self-care (01) ==
LOC: LABWHC1 06:37
PROVIDERS: ATTEND Physical Medicine & Rehabilitation
DX: M51.17 Intervertebral disc disorders with radiculopathy, lumbosacral region (principal); M43.17 Spondylolisthesis, lumbosacral region; M47.817 Spondylosis without myelopathy or radiculopathy, lumbosacral region; M96.1 Postlaminectomy syndrome, not elsewhere classified; M54.5 Low back pain; M79.644 Pain in right finger(s); G89.29 Other chronic pain; Z51.81 Encounter for therapeutic drug level monitoring; Z79.01 Long term (current) use of anticoagulants; Z98.890 Other specified postprocedural states; Z95.0 Presence of cardiac pacemaker
CPT/HCPCS: 36415; 85610; 85730

== ENCOUNTER → 2017-08-07 | Outpatient (CLI) | payer BC | END | disposition home or self-care (01) | LOC: LABWHC1 10:11 | PROVIDERS: ATTEND Physical Medicine & Rehabilitation | DX: M54.5 Low back pain (principal); M96.1 Postlaminectomy syndrome, not elsewhere classified; G89.29 Other chronic pain; M51.17 Intervertebral disc disorders with radiculopathy, lumbosacral region; M43.17 Spondylolisthesis, lumbosacral region; M47.817 Spondylosis without myelopathy or radiculopathy, lumbosacral region; Z79.01 Long term (current) use of anticoagulants | CPT/HCPCS: 36415; 84402; 84403 ==

== ENCOUNTER → 2017-08-25 | Outpatient (CLI) | payer BC | END | disposition home or self-care (01) | LOC: LABWHC1 09:47 | PROVIDERS: ATTEND Internal Medicine Cardiovascular Disease | DX: I47.2 Ventricular tachycardia (principal) | CPT/HCPCS: 36415; 84443; 84450; 84460 ==

== ENCOUNTER → 2017-08-31 | Outpatient (CLI) | payer BC | END | disposition home or self-care (01) | LOC: LABWHC1 09:45 | PROVIDERS: ATTEND Internal Medicine Cardiovascular Disease | DX: E03.2 Hypothyroidism due to medicaments and other exogenous substances (principal) | CPT/HCPCS: 36415; 84443; 84450; 84460 ==

== ENCOUNTER → 2017-10-05 | Outpatient (CLI) | payer BC | END | disposition home or self-care (01) | LOC: LABWHC1 15:53 | PROVIDERS: ATTEND Internal Medicine Cardiovascular Disease | DX: E03.2 Hypothyroidism due to medicaments and other exogenous substances (principal) | CPT/HCPCS: 36415; 84443; 84450; 84460 ==

== ENCOUNTER → 2017-10-30 | Outpatient (CLI) | payer BC ==
--- NOTE | 2017-10-30 09:52 | XR ---
EXAMINATION TYPE: XR chest 2V DATE OF EXAM: 10/30/2017 COMPARISON: 01/31/2017 TECHNIQUE: PA and lateral views submitted. HISTORY: Presurgical FINDINGS: The lungs are clear and there is no pneumothorax, pleural effusion, or focal pneumonia. Cardiac dev ice noted. Stimulator device overlying the vertebral column. Linear density right upper lobe likely r elated to scar or atelectasis. Arthropathy of the shoulders. Hypertrophic and degenerative change the spine. IMPRESSION: 1. No acute process.
[2017-10-30 10:20] LABS: Appearance,Urine Clear (Clear); Bilirubin,Urine Negative (Negative); Blood,Urine Negative (Negative); Color,Urine Yellow; Glucose,Urine (UA) Negative (Negative); Ketones,Urine Negative (Negative); Leukocyte Esterase,Urine Negative (Negative); Nitrite,Urine Negative (Negative); Protein,Urine Negative (Negative); Specific Gravity,Urine 1.011 (1.001-1.035); Urobilinogen,Urine <2.0 mg/dL (<2.0)
[2017-10-30 10:33] LABS: Basophils % (A) 0 %; Eosinophils # (A) 0.1 k/uL (0-0.7); Eosinophils % (A) 2 %; HCT 41.9 % (39.0-53.0); HGB 13.8 gm/dL (13.0-17.5); Lymphocytes # (A) 1.7 k/uL (1.0-4.8); Lymphocytes % (A) 25 %; MCH 30.5 pg (25.0-35.0); MCV 92.4 fL (80.0-100.0); Mean Platelet Volume 7.2; Monocytes # (A) 0.5 k/uL (0-1.0); Monocytes % (A) 8 %; Neutrophils % (A) 62 %; Platelet Count 191 k/uL (150-450); RBC 4.54 m/uL (4.30-5.90); RDW 12.7 % (11.5-15.5); WBC 6.6 k/uL (3.8-10.6)
[2017-10-30 10:39] LABS: INR 1.6 (<1.2); Partial Thromboplastin Time 29.1 sec (22.0-30.0); Prothrombin Time 14.4 sec (9.0-12.0)
[2017-10-30 10:52] LABS: ALT 36 U/L (21-72); AST 26 U/L (17-59); Albumin 4.2 g/dL (3.5-5.0); Alkaline Phosphatase 34 U/L (38-126); Anion Gap 7 mmol/L; Blood Urea Nitrogen 20 mg/dL (9-20); Calcium 9.2 mg/dL (8.4-10.2); Carbon Dioxide 27 mmol/L (22-30); Chloride 106 mmol/L (98-107); Glucose 112 mg/dL (74-99); Potassium 5.2 mmol/L (3.5-5.1); Sodium 140 mmol/L (137-145); Total Bilirubin 0.7 mg/dL (0.2-1.3); Total Protein 6.6 g/dL (6.3-8.2)
== END | disposition home or self-care (01) ==
LOC: LABPAT 09:04
PROVIDERS: ATTEND Orthopaedic Surgery Orthopaedic Surgery of the Spine
DX: Z01.812 Encounter for preprocedural laboratory examination (principal); M48.061 Spinal stenosis, lumbar region without neurogenic claudication; Z01.818 Encounter for other preprocedural examination
CPT/HCPCS: 36415; 71046; 80053; 81003; 85025; 85610; 85730; 86850; 86900; 86901; 87070

== ENCOUNTER 2017-11-06 08:55 | Inpatient (IN) | payer BC ==
[2017-10-25 14:58] VITALS: BMI 34.9
[~2017-11-06 08:55] MED LIST changes: +BACITRACIN 50,000 UNIT, POLYMYXIN B 500,000 UNIT in SODIUM CHLORIDE 0.9% IRRIGATIO 1,00... IRRIGATION ONE; +DEXAMETHASONE SOD PHOSPHATE 10 MG/ML 1 ML VIAL IV ONE; +LIDOCAINE 1% 20 ML VIAL (10MG/ML) FOR IV START INTRADERMA PRN; +MIDAZOLAM 2 MG/2 ML VIAL IV PRN; +ONDANSETRON 4 MG/2 ML VIAL IVP ONE; -PREMYELOGRAM MEDICATION REVIEW 1 EACH MISC PO NR; +SCOPOLAMINE 1.5MG/72HR PATCH TRANSDERM ONE; +ceFAZolin IN SWFI 2 GM/20 ML SYRINGE IVP ONE
[2017-11-06] MEDS: LACTATED RINGERS 1,000 ML IV SCH (11:35)
[2017-11-06 12:19] LABS: INR 1.2 (<1.2); Prothrombin Time 11.2 sec (9.0-12.0)
[2017-11-06] MEDS ORDERED: SODIUM CHLORIDE 0.9% IRRIG 1,000 ML BTL IRRIGATION ONE (12:57)
[2017-11-06] MEDS ORDERED: THROMBIN (BOVINE) 5,000 UNIT VIAL TOPICAL ONE (12:57)
[2017-11-06] MEDS ORDERED: MIDAZOLAM 2 MG/2 ML VIAL ONE (12:57)
[2017-11-06] MEDS ORDERED: SUCCINYLCHOLINE CHLORIDE VIAL 200 MG/10 ML VIAL IV ONE (12:57)
[2017-11-06] MEDS ORDERED: MORPHINE SULFATE 10 MG/ML SYRINGE ONE (12:57)
[2017-11-06] MEDS ORDERED: LIDOCAINE 1% INJ 10MG/ML (20 ML MDV) ONE (12:57)
[2017-11-06] MEDS ORDERED: fentaNYL (PF) 50 MCG/ML 2 ML AMP ONE (12:57)
[2017-11-06] MEDS ORDERED: PROPOFOL 10 MG/ML 20 ML VIAL IV ONE (12:57)
[2017-11-06] MEDS ORDERED: LIDOCAINE 0.5%-EPI 1:200,000 50 ML VIAL SQ ONE (12:57)
[2017-11-06] MEDS ORDERED: GELATIN SPONGE,ABSORB (LARGE) 1 EACH SPONGE TOPICAL ONE (12:57)
[2017-11-06] MEDS ORDERED: ePHEDrine SULFATE/0.9% NACL/PF 50 MG/5 ML SYRINGE IV ONE (12:57)
[2017-11-06] MEDS ORDERED: HEPARIN SODIUM,PORCINE 10,000 UNIT/ML 1 ML VIAL ONE (12:57)
[2017-11-06 13:48] LABS: ABG Base Excess -6.4 mmol/L; ABG HCO3 17 mmol/L (21-25); ABG Oxygen Saturation 99.5 % (94-97); ABG PCO2 30 mmHg (35-45); ABG PH 7.38 (7.35-7.45); ABG PO2 414 mmHg (83-108)
[2017-11-06] MEDS ORDERED: LACTATED RINGERS 1,000 ML IV ONE ×2 (14:45)
[2017-11-06] MEDS ORDERED: BENZOCAINE/MENTHOL LOZENG 1 EACH LOZENGE MUCOUS MEM PRN (16:24)
[2017-11-06] MEDS ORDERED: MAGNESIUM HYDROXIDE 2,400 MG/10 ML CUP PO PRN (16:24)
[2017-11-06] MEDS ORDERED: HYDROmorphone 1 MG/ML 1 ML SYRINGE IVP PRN ×2 (16:24)
[2017-11-06] MEDS ORDERED: HYDROcodone/APAP 5-325MG 1 EACH TAB PO PRN ×2 (16:24)
[2017-11-06] MEDS ORDERED: ONDANSETRON 4 MG/2 ML VIAL IVP PRN (16:24)
[2017-11-06] MEDS ORDERED: HYDROcodone/APAP 10-325MG 1 EACH TAB PO PRN (16:30)
--- NOTE | 2017-11-06 16:42 | P.OP ---
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 Florentino Infectious Disease Technician: Sandro TREVIÑO who is present throughout the entire the case persistence during positioning, dissection, exposure, visualization, and all crucial elements of the case as well as closure. Anesthesia: General anesthesia Estimated blood loss: Approximately 350 mL with over 100 mL given back through Cell Saver Complications: None apparent Components implanted: We implanted 6.5 x 45 mm K2 M [place] pedicle screws 2 with to wil connectors and Screws with 30 mL of DBX bone fibers to supplement the [place] autogenous and bone marrow aspirate graft Disposition: To recovery room in good stable condition. OPERATIVE INDICATIONS The patient has had long-standing issues in their lower back and lower extremities. He has had multiple surgeries at his lumbar spine including decompression as well as decompression and fusion at L3 4 L4 5 and L5-S1 with Dr. Soto in the past. Patient had initially done well with those procedures and went on to solid fusion from L3 to S1 but developed increasing pain in his back area is having increasing problems with neurogenic claudication and lower extremity radiculopathy as well. He is also a history of a dorsal column neurostimulator. His found have severe spinal stenosis at the adjacent level with adjacent level degeneration at L2-3. The symptoms correlated well with his imaging findings. He was having worsening debility despite aggressive conservative treatment. The patient has been through conservative treatment. The patient has a long history of multiple medical issues and significant cardiac history. We had significant discussions with him in regards to the risks of surgery and the risks to his overall medical status his hard and his lungs. We discussed various treatment options including surgery, and the patient wishes to proceed with surgery We discussed the risk, patient's alternatives and benefits of surgery including but not limited to, risk of bleeding risk of infection, risk of need for further surgery, risk of decreased , loss of motion, muscle function, malunion nonunion, hardware failure, nerve damage, paralysis, heart attack, blindness and . OPERATIVE SUMMARY After discussing all the risks, patient alternatives and benefits at length, the patient elected to proceed with surgical intervention, signed informed consent, and presented for their procedure. The patient was seen and examined in the preoperative holding area and the surgical site was marked. The patient was given antibiotics and brought to the operating room. The patient was sedated and intubated by anesthesia in standard fashion. The patient was positioned on to the operating room table in a prone position on the appropriate frame which was well-padded and well molded. We were careful to pad any bony prominences and pressure points. We were careful to maintain the patient's cervical spine and good neutral alignment and position throughout. The patient was prepped and draped in a normal standard fashion. An appropriate timeout and keystone protocol performed. We were able to proceed with the surgery. The local wound area was infiltrated with local anesthetic. An incision was made at the midline longitudinally over the appropriate levels utilizing the prior incision at his lumbar spine and extended somewhat cephalad. Note was made of his prior incisions from his neurostimulator and his prior surgery. I was able to dissect down without having to disrupt the cord and wiring of the neurostimulator. Prior to the prepping and draping we placed magnet over the neurostimulator to deactivate during the case. Dissection was taken down subcutaneously to the level of the fascia which was split midline. There was severe scar tissue formation. Dissection was taken over the lamina bilaterally over the facet joints and to the transverse processes of L2 bilaterally. Intraoperative x-ray was taken which showed a marker at the appropriate level of L2. I was able to visualize the hardware from L3 to S1 as well. With the appropriate level positively confirmed, we were able to proceed with placement of the pedicle holes and screws. The patient had all their twitches back. The wound was copiously irrigated and suctioned dry as had been done periodically throughout the case. Screw holes were established similarly at L2 bilaterally. A sharp awl was used to establish the starting hole. It was palpated and found to have good for pryor and good base. A monitored Steffee probe was used to establish the pedicle hole. It was positioned so there was no stimulation at 12 mA. The hole was palpated and found to have good for pryor and a good base. The hole was tapped with the appropriate sized tap. The transverse process or sacral ala was decorticated with a high-speed bur. I was able to use these holes to place the appropriate size screw and good alignment and good position with good bony purchase. When the screws were inserted there were stimulated, and found to have no stimulation at 20 mA. I was able to expose the hardware from L3 to L5 bilaterally. I tended to lower the pedicle screw hole to remove partitions of the device at L3 on the right. The screwdriver shear and I left the screw intact. I dissected down further to expose the cross-link hardware between L4 and L5. I was able to expose the Apoorva Basurto loose and the setscrews and noted to remove some bone around that area to gain access to the cross-link device. All removed I was able to loosen and remove the cross-link device and full. I was able to check the hardware and checked fusion which showed good solid fusion from L3 to S1. I was able to dissect around the exposed wil to gain access for placement of the wil extenders to be linked up to L2. I was able to turn my attention to the decompression decompression was performed with a combination of rongeurs, curettes, Kerrison rongeurs and a ball -tip feeler. I exposed down to the base of the spinous process at L2. There was severe thickening of ligamentum flavum and significant osteophytes which had to be removed. All of the bone that was removed was stripped and morcellized for use as autogenous bone graft later in the case. With the decompression I was able get excellent central and bilateral foraminal decompression. I was able to obtain good central decompression as well as wide bilateral foraminal decompression. There is no evidence of dural tear or leak. Good hemostasis was maintained. The wound was irrigated and suctioned dry. I was able to place the connecting wil extenders between the pedicle screws of L4 5 at the appropriate size. The wil extenders were measured and cut and contoured to place from L4 5 up to the new screws at L2 bilaterally. They placed in good alignment good position with excellent stability. The Screws were tightened over the wil extenders and sheared appropriately to the appropriate torque. With the hardware intact, intraoperative x-ray was again taken which showed good alignment and position of the hardware at the appropriate levels from L2 to S1. We were then able to measure, contour and place the rods and appropriate hardware bilaterally. With this intact I was able to place the local autogenous bone graft with additional bone graft enhancer as necessary into the posterior lateral gutters bilaterally. With the bone graft intact, a stable construct, and good decompression at the appropriate levels, we were able to proceed with closure. Good hemostasis was maintained. There is no evidence of dural tear or leak. The fascia was closed for a watertight closure. The subcutaneous tissue was closed over a superficial drain. The subcuticular tissue was closed with absorbable suture. The wound was cleaned and dried and dressed with the appropriate dressing. The drapes were broken down. The patient was gently rolled back onto their hospital bed being careful to maintain their cervical spine and good neutral alignment and position. They were woken up by anesthesia, extubated, and brought to the recovery room in good stable condition. The patient will be admitted to the hospital for appropriate postoperative care , medical management and monitoring. We will continue to follow them closely about the postoperative course.
[2017-11-06] MEDS: HYDROmorphone 0.5 MG/0.5 ML SYRINGE IVP PRN ×5 (16:46→17:35)
--- NOTE | 2017-11-06 17:56 | XR ---
Lumbar spine HISTORY: Needle placement Single lateral view of the lumbar spine submitted and correlated to CT 05/25/2017 There is a needle overlying the posterior elements of the L2 vertebral body. Spondylosis is present. Loss of disc height L2-3 with associated vacuum phenomenon has been on prior exam. Posterior fusion c hanges noted L3-S1. Stimulator leads, generator present. IMPRESSION: Orthopedic localization.
--- NOTE | 2017-11-06 18:14 | XR ---
Lumbar spine HISTORY: Hardware placement, status post posterior fusion 2 views of the lumbar spine correlated to prior exam dated earlier time. Interval posterior fusion at L2-3. Alignment is stable. IMPRESSION: Orthopedic follow-up.
[2017-11-06] MEDS: OFLOXACIN 0.3% OPHTH DROPS 5 ML BOTTLE RIGHT EYE SCH ×2 (19:25→23:27)
[2017-11-06] MEDS: WARFARIN 5 MG TAB PO SCH (19:25)
[2017-11-06] MEDS: SODIUM CHLORIDE 0.9% 1,000 ML IV SCH (19:25)
[2017-11-06] MEDS: ATORVASTATIN 20 MG TAB PO SCH (20:29)
[2017-11-06] MEDS: CARVEDILOL 12.5 MG TAB PO SCH (20:29)
[2017-11-06] MEDS: LISINOPRIL 5 MG TAB PO SCH (20:29)
[2017-11-06] MEDS: HYDROmorphone PCA 5 MG/25 ML SYRINGE IV PRN (20:51)
[2017-11-06] MEDS: ceFAZolin IN SWFI 2 GM/20 ML SYRINGE IVP SCH (23:27)
[2017-11-06] MEDS: CALCIUM CARBONATE 500 MG CHEWABLE PO PRN (23:57)
[2017-11-07] MEDS: CALCIUM CARBONATE 500 MG CHEWABLE PO PRN (04:48)
--- NOTE | 2017-11-07 04:53 | CONS ---
CONSULTATION OPHTHALMOLOGY CONSULTATION DATE OF SERVICE: 11/06/2017. CHIEF COMPLAINT: Pain, right eye. HISTORY OF PRESENT ILLNESS: Mr. Andres is a 62-year-old male who had surgery this afternoon. After surgery, he was noted to have eye pain in the right eye. The onset was sudden. The pain is constant. There are no alleviating factors. There is no associated vision loss. REVIEW OF SYSTEMS: Back pain. Otherwise within normal limits. MEDICAL HISTORY: Significant for ischemic cardiomyopathy, dyslipidemia, hypertension. MEDICATIONS: Amiodarone, Chantix, Coreg, Coumadin, lisinopril, Comfrey, Percocet, simvastatin. ALLERGIES: No known drug allergies. SURGICAL HISTORY: No ophthalmic surgical history. SOCIAL HISTORY: Current tobacco user. FAMILY HISTORY: Noncontributory. OPHTHALMIC EXAMINATION: Visual acuity is 20/50 in the right eye at near without correction. Pupils are equal, round and reactive to light, accommodation in both eyes. Pressure is soft to tactile palpation. Extraocular movements are full in both eyes. The lids are within normal limits in both eyes. Conjunctiva is white in both eyes. There is a corneal abrasion that is linear in the inferior cornea in the right eye. The cornea in the left eye is within normal limits. The remainder of the ophthalmic exam in both eyes is generally within normal limits. ASSESSMENT AND PLAN: 1. Corneal abrasion, right eye. I recommend using ofloxacin ophthalmic drops q.i.d. in the right eye for 5 days. 2. Nuclear sclerotic cataract, both eyes. This is not significant and can be re- evaluated in an outpatient setting. Thank you for allowing me to participate in this patient's care. MMODL / IJN: [id number] /
[2017-11-07 07:05] LABS: Basophils % (A) 0 %; Eosinophils # (A) 0.1 k/uL (0-0.7); Eosinophils % (A) 1 %; HCT 33.8 % (39.0-53.0); HGB 11.4 gm/dL (13.0-17.5); Lymphocytes # (A) 1.3 k/uL (1.0-4.8); Lymphocytes % (A) 16 %; MCH 31.4 pg (25.0-35.0); MCHC 33.8 g/dL (31.0-37.0); MCV 92.9 fL (80.0-100.0); Mean Platelet Volume 7.5; Monocytes # (A) 0.7 k/uL (0-1.0); Monocytes % (A) 8 %; Neutrophils # (A) 5.7 k/uL (1.3-7.7); Neutrophils % (A) 73 %; Platelet Count 143 k/uL (150-450); RBC 3.64 m/uL (4.30-5.90); WBC 7.8 k/uL (3.8-10.6)
--- NOTE | 2017-11-07 07:08 | P.CONS ---
History of Present Illness - Reason for Consult Consult date: 11/07/17 - Chief Complaint Postoperative management for back pain. - History of Present Illness This is a 8-year-old white male essentially admitted for lumbar laminectomy. The patient has underlying history of hypertension which is stable. The patient is now seen postop day #1. He is complaining of heartburn. No significant voiding difficulties otherwise stated. Some, bloating is stated. He does not describe any type of chest pain or shortness of breath. Review of Systems Constitutional: Denies chills, Denies fever Eyes: denies blurred vision, denies pain Cardiovascular: Denies chest pain, Denies shortness of breath Respiratory: Denies cough Gastrointestinal: Reports as per HPI Past Medical History Past Medical History: Atrial Fibrillation, Coronary Artery Disease (CAD), CVA/ TIA, Hyperlipidemia, Hypertension, Myocardial Infarction (MD), Osteoarthritis ( OA) Additional Past Medical History / Comment(s): "POST LAMINECTOMY SYNDROME" CHRONIC BACK PAIN, LUMBAR DDD Last Myocardial Infarction Date:: 2009 History of Any Multi-Drug Resistant Organisms: None Reported Past Surgical History: AICD, Back Surgery, Pacemaker Additional Past Surgical History / Comment(s): back surgery x 4 (fusion) LASIX EYE SX. [facility] pacemaker with defibrillator PLACEMENT OF NEURO STIMULATOR AND - had battery change on stimulator 2015, PAIN CLINIC PROCEDURES Past Anesthesia/Blood Transfusion Reactions: Motion Sickness Type of Cardiac Device: AICD Device Placement Date:: 2010 Past Psychological History: No Psychological Hx Reported Smoking Status: Former smoker Past Alcohol Use History: None Reported Additional Past Alcohol Use History / Comment(s): STARTED SMOKING AT AT AGE 15( 1971), SMOKES 1PPD. 05/18/17 - patient's states he has quit smoking for about mid- February Past Drug Use History: None Reported - Past Family History Mother Family Medical History: Diabetes Mellitus, Hypertension Father Family Medical History: Myocardial Infarction (MD) Additional Family Medical History / Comment(s): DAD FROM [place] WHEN PT WAS ONLY 2 MONTHS OLD. Medications and Allergies Home Medications Medication Instructions Recorded Confirmed Type Lisinopril [Zestril] 5 mg PO HS 02/10/14 11/06/17 History Simvastatin [Zocor] 40 mg PO HS 02/10/14 11/06/17 History Carvedilol [Coreg] 12.5 mg PO BID 01/31/17 11/06/17 History HYDROcodone/APAP 10-325MG [[place] 1 tab PO Q4HR PRN 10/25/17 11/06/17 History 10-325] Warfarin [Coumadin] 2.5 mg PO SUTUTHFR 10/25/17 11/06/17 History Warfarin [Coumadin] 5 mg PO MOWESA 10/25/17 11/06/17 History Allergies Allergy/AdvReac Type Severity Reaction Status Date / Time No Known Allergies Allergy Verified 11/06/17 17:07 Physical Exam Vitals: Vital Signs Temp Pulse Pulse Resp BP BP Pulse Ox 11/07/17 02:11 98.5 F 62 16 102/63 94 L 11/06/17 22:30 61 94/59 11/06/17 22:15 63 119/71 11/06/17 22:14 97.5 F L 93 70 16 108/62 11/06/17 22:00 65 98/63 11/06/17 21:45 66 124/82 11/06/17 21:30 64 114/74 11/06/17 21:15 64 103/61 11/06/17 21:00 66 110/65 11/06/17 20:45 65 91/53 11/06/17 20:30 97.5 F L 66 16 107/59 95 11/06/17 18:17 59 L 18 138/71 99 11/06/17 18:01 56 L 18 145/79 99 11/06/17 17:45 55 L 18 141/79 99 11/06/17 17:30 58 L 18 135/71 99 11/06/17 17:15 61 18 145/75 99 11/06/17 17:00 60 18 145/77 100 11/06/17 16:45 57 L 20 141/76 100 11/06/17 16:36 97 F L 62 20 138/71 100 11/06/17 11:46 51 L 111/55 11/06/17 11:23 97.2 F L 56 L 18 117/63 97 Intake and Output 11/06/17 11/07/17 11/07/17 22:59 06:59 14:59 Intake Total 401 450 Output Total 350 480 Balance 51 -30 Intake: IV 201 Intake, IV Titration 200 450 Amount Sodium Chloride 0.9% 1, 200 450 000 ml @ 75 mls/hr IV . [id number] [facility] Rx#:[id number] Output: Drainage 250 Back 250 Urine 230 Uretheral (Basurto) 230 Estimated Blood Loss 350 Other: Voiding Method Indwelling Catheter Weight 108.862 kg - Constitutional General appearance: no acute distress - EENT Eyes: EOMI - Neck Neck: no lymphadenopathy - Respiratory Respiratory: bilateral: CTA - Cardiovascular Rhythm: regular Heart sounds: normal: S1, S2 Abnormal Heart Sounds: no S3 Gallop - Gastrointestinal General gastrointestinal: soft, no tenderness - Neurologic Neurologic: CNII-XII intact - Psychiatric Psychiatric: A&O x's 3, no intact judgment & insight Results CBC & Chem 7: 11/06/17 11:38 Labs: Abnormal Lab Results - Last 24 Hours (Table) 11/06/17 11/06/17 Range/Units 11:36 13:30 INR 1.2 H (<1.2) ABG pCO2 30 L (35-45) mmHg ABG pO2 414 H (83-108) mmHg ABG HCO3 17 L (21-25) mmol/L ABG O2 Saturation 99.5 H (94-97) % Assessment and Plan (1) History of myocardial infarct at age less than 60 years Current Visit: No Status: Acute Code(s): I25.2 - OLD MYOCARDIAL INFARCTION SNOMED Code(s): 618181048 (2) Hypertension Current Visit: No Status: Acute Code(s): I10 - ESSENTIAL (PRIMARY) HYPERTENSION SNOMED Code(s): 80422738 Plan: Reconcile home medications as necessary. Go ahead and Protonix today for heartburn. Check CBC and CMP in a.m. We'll continue follow closely given his overall vascular history. Appreciate consultation. Time with Patient: Less than 30
[2017-11-07 07:24] LABS: Calcium 8.2 mg/dL (8.4-10.2); Potassium 4.2 mmol/L (3.5-5.1)
[2017-11-07] MEDS: HYDROmorphone PCA 5 MG/25 ML SYRINGE IV PRN (07:56)
[2017-11-07 07:57] LABS: INR 1.2 (<1.2); Prothrombin Time 11.2 sec (9.0-12.0)
[2017-11-07] MEDS: LACTATED RINGERS 1,000 ML IV SCH (08:00)
[2017-11-07] MEDS: OFLOXACIN 0.3% OPHTH DROPS 5 ML BOTTLE RIGHT EYE SCH ×4 (08:06→23:07)
[2017-11-07] MEDS: SODIUM CHLORIDE 0.9% 1,000 ML IV SCH ×2 (08:06→22:44)
[2017-11-07] MEDS: CARVEDILOL 12.5 MG TAB PO SCH ×2 (08:07→21:07)
[2017-11-07] MEDS: SENNOSIDES-DOCUSATE SODIUM 1 EACH TAB PO SCH (08:07)
[2017-11-07] MEDS: ceFAZolin IN SWFI 2 GM/20 ML SYRINGE IVP SCH (08:07)
[2017-11-07] MEDS: PANTOPRAZOLE 40 MG TABLET PO SCH ×2 (08:10→18:31)
--- NOTE | 2017-11-07 12:50 | P.PN ---
Progress Note - Text Progress Note Date: 11/07/17 Orthopedic Spine Patient is a pleasant 62-year-old male who is seen and examined at the bedside following posterior lateral decompression and fusion performed yesterday with extension of previous lumbar fusion. Patient is currently having significant pain in his lumbar spine. He has not been out of bed this morning. He is unsure physical therapy came to the bedside to help him today or not. Nursing is currently planning to obtain an above the bed device to increase his mobility while in bed. He is able to independently move bilateral lower extremities in bed without significant difficulty. His significant pain is stemming from his lumbosacral spine. He is also had significant increased abdominal pain and distention since yesterday. He was able to eat some food postoperatively yesterday without difficulty. He states he has not eaten or drank much today due to his abdominal pain and distention. He states he was taking antiacid medication for heartburn and wonders if that causes bloating. He states he is not currently passing gas. Currently does not complain of nausea , vomiting, fever, or chills. Patient states pain has been adequately controlled. Although he has significant pain in his lumbar spine, his current biggest complaint at the bedside is abdominal pain. Physical Exam Lumbar Fusion: Status post surgical day number 1 Patient is awake, alert, and oriented 3 Vital signs stable Good chest excursion with deep inspiration and expiration Somewhat firm and distended and is generally painful with palpation Dorsiflexion, plantarflexion, and extensor hallucis longus positive sustained bilaterally No signs or symptoms of DVT; no calf pain; pneumatic cuffs are not currently intact bilateral lower extremities Dressing is intact with some blood on the right side of the dressing; no erythema, purulence, or signs of infection Hemovac drain well secure Neurovascularly intact bilaterally lower extremities Basurto catheter intact Assessment: Posterior lateral decompression and fusion L2-3 with extension to previous lumbar fusion Low back pain Abdominal pain and distention Plan: 1. Ambulate as tolerated; work with Physical Therapy to increase mobilization 2. Continue pain control with IV and oral medications 3. Dressing and Hemovac drain to remain intact; dressing may be reinforced the feeding; dressing and a Hemovac drain will be removed tomorrow and dressing will be changed to nonstick Telfa and Tegaderm 4. Medical management can continue to manage patient for patient's other medical issues 5. We will continue to follow the patient closely; given the patient's acute abdominal pain, distention, and lack of passing gas, we will order x-rays of the abdomen for further evaluation. We may plan for further imaging, consultation with general surgery, and/or medical management for his abdominal distention and pain depending on results of imaging. 6. Patient can follow-up with Sandro Busby PA-C or Dr. Jet Florentino at [facility] in 2-3 weeks following discharge
--- NOTE | 2017-11-07 13:06 | XR ---
2 view abdomen HISTORY: Abdominal pain and distention. 2 views of the abdomen submitted on 3 images. There is a gas-distended stomach. Air-filled loops of colon are noted. There is a long present in the left gluteal region, leads are coursing within the thoracic cord stimulator to the level of approxim ately T8-9. Posterior lumbar fusion present at L2-S1. Intracardiac lead is noted incidentally coursin g towards the right ventricle. Paraspinal location noted the left L1 transverse process measures appr oximately 2 to 3 mm. No evident pneumoperitoneum. IMPRESSION: Gas distended stomach. Correlate for ileus, possible gastric outlet obstruction.
[2017-11-07] MEDS: IOPAMIDOL-300 CONTRAST 30 ML VIAL (ORAL USE) PO PRN ×2 (14:42→15:56)
[2017-11-07] MEDS: WARFARIN 2.5 MG TAB PO SCH (18:31)
--- NOTE | 2017-11-07 19:31 | CT ---
EXAMINATION TYPE: CT abdomen pelvis with oral contrast, but wo intravenous contrast contrast DATE OF EXAM: 11/07/2017 COMPARISON: Radiographs 11/07/2017 at 12:42 PM HISTORY: Abdominal distention CT DLP: 1288.8 mGycm Automated exposure control for dose reduction was used. TECHNIQUE: Helical acquisition of images was performed from the lung bases through the pelvis. DLP 1289 mGy-cm. FINDINGS: VISUALIZED LOWER THORAX: Moderate cardiomegaly with cardiac pacemaker, coronary calcifications and le ft ventricular apical chronic aneurysmal calcifications. Visualized lung bases and pleural spaces are negative for acute findings. BOWEL: Oral contrast opacifies the stomach which is mildly distended. The oral contrast also opacifi es the duodenum and jejunum which are unremarkable. There is partial opacification of the ileum which is negative. The colon is also unremarkable. Which is unremarkable. LIVER/GB: Gallbladder is mildly distended, a nonspecific finding. No significant abnormality is appre ciated. PANCREAS: No significant abnormality is seen. SPLEEN: No significant abnormality is seen. ADRENALS: No significant abnormality is seen. KIDNEYS: No significant abnormality is seen. FREE AIR: No free air is visualized RETROPERITONEAL ADENOPATHY: None visualized REPRODUCTIVE ORGANS: No significant abnormality is seen URINARY BLADDER: No significant abnormality is seen. Basurto catheter in place. PELVIC ADENOPATHY: None visualized. OSSEOUS STRUCTURES: No significant abnormality is seen. VASCULATURE: 1. 4.5 cm infrarenal abdominal aortic aneurysm noted, smoothly marginated. 2. Moderate cardiomegaly with cardiac pacemaker, coronary calcifications and left ventricular apical chronic aneurysmal calcifications. IMPRESSION: 1. NO DEFINITE ACUTE PROCESS. 2. GASTRIC DISTENTION, ETIOLOGY UNCLEAR. 3. NEGATIVE FOR GASTRIC OUTLET OBSTRUCTION OR OTHER BOWEL OBSTRUCTION. 4. VASCULATURE FINDINGS DISCUSSED.
[2017-11-07] MEDS: LISINOPRIL 5 MG TAB PO SCH (21:07)
[2017-11-07] MEDS: ATORVASTATIN 20 MG TAB PO SCH (21:07)
[2017-11-07] MEDS: PANTOPRAZOLE 40 MG/10 ML VIAL IVP SCH (21:13)
[2017-11-08 07:15] LABS: HCT 30.8 % (39.0-53.0); HGB 10.4 gm/dL (13.0-17.5); MCH 30.9 pg (25.0-35.0); MCHC 33.6 g/dL (31.0-37.0); Mean Platelet Volume 7.5; Platelet Count 142 k/uL (150-450); RBC 3.35 m/uL (4.30-5.90); RDW 12.7 % (11.5-15.5); WBC 7.5 k/uL (3.8-10.6)
[2017-11-08 07:30] LABS: ALT 29 U/L (21-72); AST 30 U/L (17-59); Albumin 2.8 g/dL (3.5-5.0); Alkaline Phosphatase 28 U/L (38-126); Anion Gap 4 mmol/L; Blood Urea Nitrogen 12 mg/dL (9-20); Carbon Dioxide 26 mmol/L (22-30); Chloride 107 mmol/L (98-107); Glucose 99 mg/dL (74-99); Potassium 4.1 mmol/L (3.5-5.1); Sodium 137 mmol/L (137-145); Total Bilirubin 0.7 mg/dL (0.2-1.3); Total Protein 4.9 g/dL (6.3-8.2)
[2017-11-08] MEDS: LACTATED RINGERS 1,000 ML IV SCH (07:52)
[2017-11-08] MEDS: HYDROmorphone PCA 5 MG/25 ML SYRINGE IV PRN (08:56)
--- NOTE | 2017-11-08 09:04 | P.PN ---
Subjective Progress Note Date: 11/08/17 Principal diagnosis: Questionable ileus. This is 62-year-old white male who is postop day #2 spinal stenosis but developed some abdominal bloating. Computed tomography scan does not show any acute pathology. Hopefully we can DC his NG tube at this time. Objective - Vital Signs Vital signs: Vital Signs Temp 98 F 11/08/17 07:00 Pulse 62 11/08/17 07:00 Resp 12 11/08/17 07:00 BP 95/51 11/08/17 07:00 Pulse Ox 95 11/08/17 07:00 Intake & Output 11/07/17 11/08/17 11/08/17 18:59 06:59 18:59 Intake Total 450 900 Output Total 460 1625 Balance -10 -725 Intake: Intake, IV Titration 450 900 Amount Sodium Chloride 0.9% 1, 450 900 000 ml @ 75 mls/hr IV . [id number] LARA Rx#:[id number] Output: Drainage 60 25 Back 60 25 Urine 400 1600 Uretheral (Basurto) 400 1600 Other: Voiding Method Indwelling Catheter Indwelling Catheter Indwelling Catheter - Constitutional General appearance: Present: average body habitus - EENT Eyes: Absent: abnormal pupil - Respiratory Respiratory: bilateral: CTA - Cardiovascular Rhythm: regular Heart sounds: normal: S1, S2 Abnormal Heart Sounds: Absent: S3 Gallop - Gastrointestinal General gastrointestinal: Present: soft. Absent: tenderness - Musculoskeletal Musculoskeletal: Present: gait normal - Psychiatric Psychiatric: Present: A&O x's 3 - Labs CBC & Chem 7: 11/08/17 06:30 11/08/17 06:30 Labs: Abnormal Lab Results - Last 24 Hours (Table) 11/08/17 11/08/17 Range/Units 06:30 06:30 RBC 3.35 L (4.30-5.90) m/uL Hgb 10.4 L (13.0-17.5) gm/dL Hct 30.8 L (39.0-53.0) % Plt Count 142 L (150-450) k/uL Calcium 8.0 L (8.4-10.2) mg/dL Alkaline Phosphatase 28 L (38-126) U/L Total Protein 4.9 L (6.3-8.2) g/dL Albumin 2.8 L (3.5-5.0) g/dL Assessment and Plan (1) History of myocardial infarct at age less than 60 years Current Visit: No Status: Acute Code(s): I25.2 - OLD MYOCARDIAL INFARCTION SNOMED Code(s): 201684886 (2) Hypertension Current Visit: No Status: Acute Code(s): I10 - ESSENTIAL (PRIMARY) HYPERTENSION SNOMED Code(s): 66533069 (3) Lumbar stenosis Current Visit: Yes Status: Acute Code(s): M48.061 - SPINAL STENOSIS, LUMBAR REGION WITHOUT NEUROGENIC DIONISIO SNOMED Code(s): 46552297 (4) S/P laminectomy Current Visit: Yes Status: Acute Code(s): Z98.890 - OTHER SPECIFIED POSTPROCEDURAL STATES SNOMED Code(s): 867800231 Plan: Continue current regimen of treatment and hopefully DC NG tube. We'll continue to follow. Appreciate surgical evaluation. Time with Patient: Less than 30
[2017-11-08] MEDS: SENNOSIDES-DOCUSATE SODIUM 1 EACH TAB PO SCH (09:06)
[2017-11-08] MEDS: OFLOXACIN 0.3% OPHTH DROPS 5 ML BOTTLE RIGHT EYE SCH ×4 (09:06→23:32)
[2017-11-08] MEDS: PANTOPRAZOLE 40 MG/10 ML VIAL IVP SCH ×2 (09:06→21:47)
[2017-11-08] MEDS: CARVEDILOL 12.5 MG TAB PO SCH ×2 (09:06→21:47)
[2017-11-08] MEDS: SODIUM CHLORIDE 0.9% 1,000 ML IV SCH ×2 (09:23→21:51)
--- NOTE | 2017-11-08 10:09 | P.PN ---
Progress Note - Text Progress Note Date: 11/08/17 Orthopedic Spine: Patient is a pleasant 62-year-old male who is seen and examined at the bedside by myself and Dr. Jet Florentino following posterior lateral decompression and fusion performed Monday with extension of previous lumbar fusion. Patient has had significant improvement as compared to yesterday. He does have some pain at the surgical site but his pain has been controlled. He is able to work with physical therapy and ambulate. He is able to sit the bedside. His Basurto catheter has been discontinued. Continues to move his lower extremities independently without significant difficulty. Yesterday he was experiencing significant abdominal pain and distention. X-ray and CT results of the abdomen were performed. NG tube was placed by general surgery. He has had some improvement of his abdominal pain and distention he continues to be seen by Gen. surgery and medicine. Currently does not complain of nausea, vomiting, fever, or chills. Patient states pain has been adequately controlled. He continues to use RECRUITING MANAGER and receive IV push and oral narcotic pain medications or pain control. Physical Exam Lumbar Fusion: Status post surgical day number 2 Patient is awake, alert, and oriented 3 Vital signs stable Good chest excursion with deep inspiration and expiration Abdomen is soft nontender; NG tube in place Dorsiflexion, plantarflexion, and extensor hallucis longus positive sustained bilaterally No signs or symptoms of DVT; no calf pain; pneumatic cuffs are not currently intact bilateral lower extremities Dressing is intact with some blood on the right side of the dressing; no erythema, purulence, or signs of infection Dressing is removed and changed to nonstick Telfa and Tegaderm Incision is dry with no active drainage Hemovac drain well secure; Hemovac drain removed during physical examination Neurovascularly intact bilaterally lower extremities Basurto catheter discontinued Pertinent studies: CT the abdomen and pelvis: Gastric distention etiology unclear; negative for gastric outlet obstruction or other bowel obstruction; no definite acute process ; 4.5 cm infrarenal abdominal aortic aneurysm smoothly marginated X-ray abdomen: Gas distended stomach correlates for ileus; possible gastric outlet obstruction Assessment: Posterior lateral decompression and fusion L2-3 with extension to previous lumbar fusion Low back pain Abdominal pain and distention improvement Plan: 1. Ambulate as tolerated; work with Physical Therapy to increase mobilization 2. Continue pain control with IV and oral medications; plan to start to wean the patient off of RECRUITING MANAGER 3. Dressing has been removed and Hemovac drain has been discontinued; sling changed to nonstick Telfa and Tegaderm 4. Medical management can continue to manage patient for patient's other medical issues 5. Patient will continue to be seen and examined by Dr. Dahl general surgery in regards to his abdominal pain and distention. NG tube was placed yesterday. Patient has had some improvement of his symptoms since that time 5. We will continue to follow the patient closely; patient is able to improve over the next day or 2 in regards to his lumbar spine, we may plan for discharge home as early as tomorrow, 11/09/2017 or 11/10/2017 6. Patient can follow-up with Sandro Busby PA-C or Dr. Jet Florentino at [facility] in 2-3 weeks following discharge
--- NOTE | 2017-11-08 10:34 | P.GSCN ---
Addendum entered and electronically signed by Preeti Cuevas NP-C 11/15/17 10:16 : impression Postop ileus expected postsurgical condition treated with a nasogastric tube resolved Original Note: History of Present Illness Consult date: 11/08/17 Reason for Consult: Abdominal pain History of present illness: 62-year-old male being seen by surgical service for an evaluation of abdominal pain possible ileus post op after undergoing on November 07 fusion to the lumbar spine for spinal stenosis patient reports after the procedure yesterday he did develop bloating nausea sensation with heartburn symptoms. Patient stated he was not able to pass any gas was not able to belch. Patient stated after his prior back surgery 10 years ago he developed similar episode. Patient currently reports having surgical discomfort "nasal gastric tube is annoying" currently has a nasogastric tube to intermittent suction 150 out for the last 8 hours abdomen soft with diffuse tenderness. Hypoactive bowel tones mildly distended Computed tomography scan abdomen pelvis with oral contrast done November 07 reviewing the report gallbladder mildly distended colon unremarkable oral contrast opacifies mildly distended, negative for gastric outlet obstruction or any other bowel obstruction Past medical history paroxysmal atrial fibrillation, coronary artery disease, spinal stenosis, osteoarthritis Past surgical history AICD, prior back surgery, pacemaker Review of Systems Essentially unremarkable except as in the present illness Past Medical History Past Medical History: Atrial Fibrillation, Coronary Artery Disease (CAD), CVA/ TIA, Hyperlipidemia, Hypertension, Myocardial Infarction (GA), Osteoarthritis ( OA) Additional Past Medical History / Comment(s): "POST LAMINECTOMY SYNDROME" CHRONIC BACK PAIN, LUMBAR DDD Last Myocardial Infarction Date:: 2009 History of Any Multi-Drug Resistant Organisms: None Reported Past Surgical History: AICD, Back Surgery, Pacemaker Additional Past Surgical History / Comment(s): back surgery x 4 (fusion) LAS[facility] [employer] SX. [facility] pacemaker with defibrillator PLACEMENT OF NEURO STIMULATOR AND - had battery change on stimulator 2016, PAIN CLINIC PROCEDURES Past Anesthesia/Blood Transfusion Reactions: Motion Sickness Type of Cardiac Device: AICD Device Placement Date:: 2010 Past Psychological History: No Psychological Hx Reported Smoking Status: Former smoker Past Alcohol Use History: None Reported Additional Past Alcohol Use History / Comment(s): STARTED SMOKING AT AT AGE 15( 1971), SMOKES 1PPD. 05/18/17 - patient's states he has quit smoking for about mid- February Past Drug Use History: None Reported - Past Family History Mother Family Medical History: Diabetes Mellitus, Hypertension Father Family Medical History: Myocardial Infarction (GA) Additional Family Medical History / Comment(s): DAD FROM [place] WHEN PT WAS ONLY 2 MONTHS OLD. Medications and Allergies Home Medications Medication Instructions Recorded Confirmed Type Lisinopril [Zestril] 5 mg PO HS 02/10/14 11/06/17 History Simvastatin [Zocor] 40 mg PO HS 02/10/14 11/06/17 History Carvedilol [Coreg] 12.5 mg PO BID 01/31/17 11/06/17 History HYDROcodone/APAP 10-325MG [[place] 1 tab PO Q4HR PRN 10/25/17 11/06/17 History 10-325] Warfarin [Coumadin] 2.5 mg PO SUTUTHFR 10/25/17 11/06/17 History Warfarin [Coumadin] 5 mg PO MOWESA 10/25/17 11/06/17 History Allergies Allergy/AdvReac Type Severity Reaction Status Date / Time No Known Allergies Allergy Verified 11/06/17 17:07 Surgical - Exam Vital Signs Temp Pulse Resp BP Pulse Ox 97.2 F L 56 L 18 117/63 97 11/06/17 11:23 11/06/17 11:23 11/06/17 11:23 11/06/17 11:23 11/06/17 11:23 GENERAL APPEARANCE: 62 year old patient is alert, oriented x3 reports having surgical discomfort VITAL SIGNS: Reviewed HEENT: Head is normocephalic and atraumatic. Pupils are equal and reactive. The nares are patent. Oropharynx is clear without lesions. NECK: Supple without lymphadenopathy. Traches midline. HEART: S1, S2. Regular rate and rhythm. Denies chest pain no murmur noted LUNGS: No crackles or wheezes are heard. Adequate air movement bilaterally room air sats 95% ABDOMEN: Nasogastric tube to intermittent suction slightly distended mild diffuse tenderness a few hypoactive bowel tones No peritoneal signs. No palpable organomegaly or masses. Indwelling Basurto catheter in place EXTREMITIES: Normal skin color and turgor. No cyanosis, rash, ulceration, clubbing or edema. Radial pedal pulses are 2/4 bilaterally. NEUROLOGICAL: No focal deficits. Strength and sensation are grossly intact. Back surgical dressing site dry Hemovac in place Results - Labs 11/08/17 06:30 11/08/17 06:30 Abnormal Lab Results - Last 24 Hours (Table) 11/08/17 11/08/17 Range/Units 06:30 06:30 RBC 3.35 L (4.30-5.90) m/uL Hgb 10.4 L (13.0-17.5) gm/dL Hct 30.8 L (39.0-53.0) % Plt Count 142 L (150-450) k/uL Calcium 8.0 L (8.4-10.2) mg/dL Alkaline Phosphatase 28 L (38-126) U/L Total Protein 4.9 L (6.3-8.2) g/dL Albumin 2.8 L (3.5-5.0) g/dL Diabetes panel 11/08/17 Range/Units 06:30 Sodium 137 (137-145) mmol/L Potassium 4.1 (3.5-5.1) mmol/L Chloride 107 (98-107) mmol/L Carbon Dioxide 26 (22-30) mmol/L BUN 12 (9-20) mg/dL Creatinine 0.74 (0.66-1.25) mg/dL Glucose 99 (74-99) mg/dL Calcium 8.0 L (8.4-10.2) mg/dL AST 30 (17-59) U/L ALT 29 (21-72) U/L Alkaline Phosphatase 28 L (38-126) U/L Total Protein 4.9 L (6.3-8.2) g/dL Albumin 2.8 L (3.5-5.0) g/dL Calcium panel 11/08/17 Range/Units 06:30 Calcium 8.0 L (8.4-10.2) mg/dL Albumin 2.8 L (3.5-5.0) g/dL Pituitary panel 11/08/17 Range/Units 06:30 Sodium 137 (137-145) mmol/L Potassium 4.1 (3.5-5.1) mmol/L Chloride 107 (98-107) mmol/L Carbon Dioxide 26 (22-30) mmol/L BUN 12 (9-20) mg/dL Creatinine 0.74 (0.66-1.25) mg/dL Glucose 99 (74-99) mg/dL Calcium 8.0 L (8.4-10.2) mg/dL Adrenal panel 11/08/17 Range/Units 06:30 Sodium 137 (137-145) mmol/L Potassium 4.1 (3.5-5.1) mmol/L Chloride 107 (98-107) mmol/L Carbon Dioxide 26 (22-30) mmol/L BUN 12 (9-20) mg/dL Creatinine 0.74 (0.66-1.25) mg/dL Glucose 99 (74-99) mg/dL Calcium 8.0 L (8.4-10.2) mg/dL Total Bilirubin 0.7 (0.2-1.3) mg/dL AST 30 (17-59) U/L ALT 29 (21-72) U/L Alkaline Phosphatase 28 L (38-126) U/L Total Protein 4.9 L (6.3-8.2) g/dL Albumin 2.8 L (3.5-5.0) g/dL Assessment and Plan Assessment: Impression Postop acute abdominal distention with bloating and nausea suspect possible early ileus not ruled out Computed tomography scan of the abdomen pelvis with oral contrast negative for gastric outlet obstruction or bowel obstruction gastric distention unclear etiology 4.5 cm infrarenal abdominal aortic aneurysm Abdominal x-ray gastric distention stomach correlate possible ileus Postop lumbar fusion for severe spinal stenosis done on November 07 Known coronary artery disease with an ICD placement Chronic lower back pain Plan Repeat an abdominal x-ray follow up on results Clamped the nasogastric tube with low output will remove Continue postop orthopedic care per orthopedic service Pain control per orthopedic recommendations We'll follow with you with further surgical recommendations No evidence of an acute surgical abdomen at this time DVT and GI prophylaxis IV fluid for hydration Surgical consultation note dictated for Dr. nair The above impression and plan of care have been discussed and directed by signing physician. Preeti Cuevas nurse practitioner acting as scribe for signing physician.
--- NOTE | 2017-11-08 14:04 | XR ---
Abdomen 2 view HISTORY: Abnormal x-ray, possible ileus 2 views of the abdomen submitted on 3 images and correlated to prior abdomen 11/07/2017, CT abdomen pel vis 11/07/2017 There is been interval placement of an NG tube, distal tip of the tube likely within the proximal sma ll bowel. Contrast material is coursed into the colon. No evident pneumoperitoneum. Postop changes ar e again seen. IMPRESSION: Bowel obstruction is not evident. There is improvement compared to prior exam, gastric di stention has resolved.
[2017-11-08] MEDS: WARFARIN 5 MG TAB PO SCH (18:04)
[2017-11-08] MEDS: ATORVASTATIN 20 MG TAB PO SCH (21:47)
[2017-11-08] MEDS: LISINOPRIL 5 MG TAB PO SCH (21:47)
[2017-11-09] MEDS: HYDROmorphone PCA 5 MG/25 ML SYRINGE IV PRN (01:02)
[2017-11-09] MEDS: LACTATED RINGERS 1,000 ML IV SCH (05:24)
[2017-11-09] MEDS: SODIUM CHLORIDE 0.9% 1,000 ML IV SCH ×3 (05:26→20:16)
[2017-11-09] MEDS: OFLOXACIN 0.3% OPHTH DROPS 5 ML BOTTLE RIGHT EYE SCH ×4 (06:12→23:26)
[2017-11-09] MEDS: PANTOPRAZOLE 40 MG/10 ML VIAL IVP SCH ×2 (07:27→20:16)
[2017-11-09] MEDS: SENNOSIDES-DOCUSATE SODIUM 1 EACH TAB PO SCH (07:27)
--- NOTE | 2017-11-09 08:08 | P.PN ---
Subjective Principal diagnosis: Questionable ileus. This a continue present 62-year-old white male essentially admitted for lumbar stenosis. The patient had post operative GI ileus which is now resolved. The patient is seemingly now having more but appetite. No new voiding difficulty stated. Milk of magnesia has been started. Dietary advancement is pending. Objective - Vital Signs Vital signs: Vital Signs Temp 98.5 F 11/09/17 07:00 Pulse 64 11/09/17 07:00 Resp 12 11/09/17 07:00 BP 110/68 11/09/17 07:00 Pulse Ox 96 11/09/17 07:00 Intake & Output 11/08/17 11/09/17 11/09/17 18:59 06:59 18:59 Intake Total 1000 2200 Output Total 500 Balance 500 2200 Intake: Intake, IV Titration 1000 2000 Amount Sodium Chloride 0.9% 1, 1000 2000 000 ml @ 125 mls/hr IV . Q8H LARA Rx#:[id number] Other 200 Output: Urine 500 Other: Voiding Method Indwelling Catheter # Voids 3 - Constitutional General appearance: Present: obese - EENT Eyes: Absent: abnormal pupil - Respiratory Respiratory: bilateral: CTA - Cardiovascular Rhythm: regular Heart sounds: normal: S1, S2 Abnormal Heart Sounds: Absent: S3 Gallop - Gastrointestinal General gastrointestinal: Present: soft - Neurologic Neurologic: Present: CNII-XII intact. Absent: focal deficits - Psychiatric Psychiatric: Present: A&O x's 3 - Labs CBC & Chem 7: 11/08/17 06:30 11/08/17 06:30 Assessment and Plan (1) History of myocardial infarct at age less than 60 years Current Visit: No Status: Acute Code(s): I25.2 - OLD MYOCARDIAL INFARCTION SNOMED Code(s): 180601292 (2) Hypertension Current Visit: No Status: Acute Code(s): I10 - ESSENTIAL (PRIMARY) HYPERTENSION SNOMED Code(s): 30547521 (3) Lumbar stenosis Current Visit: Yes Status: Acute Code(s): M48.061 - SPINAL STENOSIS, LUMBAR REGION WITHOUT NEUROGENIC DIONISIO SNOMED Code(s): 56632501 (4) S/P laminectomy Current Visit: Yes Status: Acute Code(s): Z98.890 - OTHER SPECIFIED POSTPROCEDURAL STATES SNOMED Code(s): 903132355 Plan: continue current regimen or treatment. Advance diet per surgery. Anticipate discharge in next 24-48 hours The patient clinically is significantly improved.
[2017-11-09] MEDS: CARVEDILOL 12.5 MG TAB PO SCH ×2 (08:40→20:16)
--- NOTE | 2017-11-09 09:26 | P.PN ---
Progress Note - Text Progress Note Date: 11/09/17 Postoperative day #4 Patient is seen and examined today at bedside. The patient has some pain around the surgical site as expected. His abdomen is doing better. He has been able to tolerate some foods. He is not nauseous is not vomiting. He says he is belching regularly but is passing gas but has not had a bowel movement. He denies abdominal pain Pain is being controlled with medication. Physical Exam Afebrile with stable vital signs Abdomen is soft nontender. There is no distention. There is no rebound rigidity or guarding. Chest has good excursion deep and space expiration The incision site is clean dry and intact. No erythema there is no purulence. There is no active drainage there is no erythema Extremities have not had neurologic change from prior to surgery. He has sustained dorsal flexion plantar flexion extensor hallucis longus Calves and thighs were soft nontender without evidence of DVT. Assessment/Plan Postoperative day #4 status post compression and fusion for adjacent level degeneration and spinal stenosis Patient is progressing as expected from the surgery at his spine. His pain is adequately controlled and he is starting to mobilize better. He had some issues with abdominal distention but this seems to be resolving well. I would like to make sure that his abdomen is function appropriate leg before his discharge and hopefully we will have a bowel movement and be ready for discharge home likely tomorrow. We will continue to increase the patient's mobilization with therapy. We will continue pain control with oral or IV medications. We'll continue to follow patient closely.
[2017-11-09] MEDS ORDERED: oxyCODONE-APAP 5-325MG 1 EACH TAB PO PRN (10:06)
[2017-11-09] MEDS: oxyCODONE-APAP 5-325MG 1 EACH TAB PO PRN ×4 (11:04→23:27)
[2017-11-09] MEDS: WARFARIN 2.5 MG TAB PO SCH (17:03)
[2017-11-09] MEDS: LISINOPRIL 5 MG TAB PO SCH (20:16)
[2017-11-09] MEDS: ATORVASTATIN 20 MG TAB PO SCH (20:16)
[2017-11-10] MEDS: oxyCODONE-APAP 5-325MG 1 EACH TAB PO PRN ×2 (04:58→08:49)
[2017-11-10] MEDS: OFLOXACIN 0.3% OPHTH DROPS 5 ML BOTTLE RIGHT EYE SCH (04:58)
[2017-11-10] MEDS: SODIUM CHLORIDE 0.9% 1,000 ML IV SCH (04:59)
[2017-11-10 07:22] VITALS: BP 126/61; PULSE 66; RESP 12; TEMP 98.1
[2017-11-10] MEDS: CARVEDILOL 12.5 MG TAB PO SCH (07:24)
[2017-11-10] MEDS: SENNOSIDES-DOCUSATE SODIUM 1 EACH TAB PO SCH (07:24)
[2017-11-10] MEDS: PANTOPRAZOLE 40 MG/10 ML VIAL IVP SCH (07:25)
--- NOTE | 2017-11-10 09:04 | P.DS ---
Providers Date of admission: 11/06/17 10:59 Attending physician: Sahka Florentino Consults: 11/06/17 16:24 Consult Physician Routine Consulting Provider: Porter Gonsales Consult Reason/Comments: Medical management Do you want consulting provider notified?: Yes 11/06/17 18:07 Consult Physician Routine Consulting Provider: Don Glass Consult Reason/Comments: CORNEAL ABRASION Do you want consulting provider notified?: Already Contacted 11/07/17 13:42 Consult Physician Routine Consulting Provider: Shubham Dahl Consult Reason/Comments: possible ileus Do you want consulting provider notified?: Yes Primary care physician: Porter Gonsales - Discharge Diagnosis(es) (1) History of myocardial infarct at age less than 60 years Current Visit: No Status: Acute (2) Hypertension Current Visit: No Status: Acute (3) Lumbar stenosis Current Visit: Yes Status: Acute (4) S/P laminectomy Current Visit: Yes Status: Acute Patient Condition at Discharge: Stable Plan - Discharge Summary Discharge Rx Participant: Yes New Discharge Prescriptions: New RX: Magnesium Hydroxide [Milk of Magnesia Concentrate] 2,400 mg PO DAILY PRN ml PRN Reason: Constipation RX: Sennosides-Docusate Sodium [Senokot-S] 1 each PO DAILY tab Continue RX: Simvastatin [Zocor] 40 mg PO HS RX: Lisinopril [Zestril] 5 mg PO HS RX: Carvedilol [Coreg] 12.5 mg PO BID RX: Warfarin [Coumadin] 5 mg PO MOWESA RX: Warfarin [Coumadin] 2.5 mg PO SUTUTHFR RX: HYDROcodone/APAP 10-325MG [[place] 10-325] 1 tab PO Q4HR PRN PRN Reason: Pain Discharge Medication List Lisinopril [Zestril] 5 mg PO HS 02/10/14 [History] Simvastatin [Zocor] 40 mg PO HS 02/10/14 [History] Carvedilol [Coreg] 12.5 mg PO BID 01/31/17 [History] HYDROcodone/APAP 10-325MG [[place] 10-325] 1 tab PO Q4HR PRN 10/25/17 [History] Warfarin [Coumadin] 2.5 mg PO SUTUTHFR 10/25/17 [History] Warfarin [Coumadin] 5 mg PO MOWESA 10/25/17 [History] Magnesium Hydroxide [Milk of Magnesia Concentrate] 2,400 mg PO DAILY PRN ml 01/18 [Rx] Sennosides-Docusate Sodium [Senokot-S] 1 each PO DAILY tab 11/10/17 [Rx] Follow up Appointment(s)/Referral(s): Sandro Busby, ROBE [PHYSICIAN THEATER MANAGER] - 10 Days (Patient may follow-up with Sandro Busby PA-C or Dr. Jet Florentino at [facility] in 2-3 weeks following discharge. ) Activity/Diet/Wound Care/Special Instructions: 1. Patient may shower with Tegaderm dressing intact. 2. Patient may remove Tegaderm dressing in 3 days and shower without a dressing at that time. 3. Patient should keep Steri-Strips intact and allow them to fall off naturally. 4. Patient should refrain from driving until at least after their first follow- up appointment in the office. 5. Patient should avoid excessive bending, twisting, and lifting; no lifting greater than 10 pounds 6. Take medications as prescribed 7. Do not soak in tub Discharge Disposition: HOME WITH HOME HEALTH SERVICES
--- NOTE | 2017-11-10 09:16 | P.DS ---
Providers Date of admission: 11/06/17 10:59 Expected date of discharge: 11/10/17 Attending physician: Shaka Florentino Consults: 11/06/17 16:24 Consult Physician Routine Consulting Provider: Porter Gonsales Consult Reason/Comments: Medical management Do you want consulting provider notified?: Yes 11/06/17 18:07 Consult Physician Routine Consulting Provider: Don Glass Consult Reason/Comments: CORNEAL ABRASION Do you want consulting provider notified?: Already Contacted 11/07/17 13:42 Consult Physician Routine Consulting Provider: Shubham Dahl Consult Reason/Comments: possible ileus Do you want consulting provider notified?: Yes Primary care physician: Porter Gonsales - Discharge Diagnosis(es) (1) Lumbar degenerative disc disease Current Visit: Yes Status: Acute (2) Neurogenic claudication Current Visit: Yes Status: Acute (3) Lumbar back pain with radiculopathy affecting lower extremity Current Visit: Yes Status: Acute (4) History of lumbar fusion Current Visit: Yes Status: Acute (5) Status post lumbar spinal fusion Current Visit: Yes Status: Acute (6) Lumbar stenosis Current Visit: Yes Status: Acute Hospital Course: This is a pleasant 62-year-old male who presented with L2-3 adjacent level degenerative disc disease and severe spinal stenosis, neurogenic claudication, lower extremity radiculopathy, history of previous lumbar decompression and fusion L3-4, L4-5, L5-S1 who failed outpatient conservative therapy. He was admitted for a posterior lateral decompression and fusion at L2-3 with extension to previous lumbar fusion. Initially patient had significant pain at the surgical site. Postoperative day 1 he started experiencing significant abdominal distention and abdominal pain. X-rays were performed and showed gastric distended stomach and to correlate for ileus with possible gastric outlet obstruction. Medicine was contacted. They made him nothing by mouth and ordered a CT of the abdomen. Dr. Dahl was also consulted. Abdominal CT showed no definite acute process with gastric distention with etiology unclear, and negative for gastric outlet obstruction or other bowel obstruction. NG tube was placed by general surgery. Patient symptoms had significantly improved. He has had a large bowel movement. He is now tolerating a regular diet without difficulty. His abdomen is soft nontender. No specific documentation per imaging states patient had diagnosed ileus but states patient did have gastric distention with unknown etiology. Follow-up x- ray of the abdomen taken on 11/08/2017 showed resolved gastric distention with improvement as compared to previous exam with no evidence of bowel obstruction. Patient's pain has been better controlled. He rarely takes [place] 10 mg/325 mg an outpatient setting as prescribed by Dr. Betancourt. He is currently receiving Percocet 5 mg/325 mg 1 tab every 4 hours for pain control. We discussed he will be given a prescription for this medication at discharge for 1 week work U pain. We will plan to have him follow with Dr. Betancourt for long- term pain management. Patient feels he is ready for discharge home today. He does continue to have some low back pain with some pain down the lower extremities but states his symptoms have significant improvement with the past 2 days. Patient is clear for discharge pending clearance by medicine and general surgery. Condition on day of discharge stable. Patient will be discharged home. Patient was cleared preoperatively for surgery by Dr. Gonsales. Patient currently denies any nausea, vomiting, fever, or chills. Patient is eating and voiding freely without difficulty. Patient may shower Tegaderm dressing intact. Patient may remove Tegaderm dressing in 2 days and shower without a dressing at that time. Patient should keep Steri-Strips intact and allow them to fall off naturally. Patient should refrain from driving until at least after their first follow-up appointment in the office. Patient should avoid excessive bending, lifting, and twisting; no lifting greater than 10 pounds. Patient should is continue [place] 10 mg/325 mg while on prescription for Percocet. Patient is also given prescription for Senokot and milk of magnesia discharge by medicine. MAPS has been reviewed today with an overall Overdose Risk Score: 160 Physical Exam on day of discharge: Patient is awake, alert, and oriented 3 Vital signs stable Good chest excursion with deep inspiration and expiration Abdomen soft nontender No signs or symptoms of DVT; no calf pain Extensor hallucis longus, plantarflexion, and dorsiflexion positive sustained bilateral lower extremities Incision is clean, dry, and intact; no erythema, purulence, or signs of infection Tegaderm dressing and non-stick Telfa intact Procedures: Posterior lateral decompression and fusion at L2-3 with extension to previous lumbar fusion Patient Condition at Discharge: Stable Plan - Discharge Summary Discharge Rx Participant: Yes New Discharge Prescriptions: New Magnesium Hydroxide [Milk of Magnesia Concentrate] 2,400 mg PO DAILY PRN ml PRN Reason: Constipation Sennosides-Docusate Sodium [Senokot-S] 1 each PO DAILY tab oxyCODONE-APAP 5-325MG [Percocet 5-325 mg] 1 tab PO Q4HR PRN #42 tab PRN Reason: Pain Continue Simvastatin [Zocor] 40 mg PO HS Lisinopril [Zestril] 5 mg PO HS Carvedilol [Coreg] 12.5 mg PO BID Warfarin [Coumadin] 5 mg PO MOWESA Warfarin [Coumadin] 2.5 mg PO SUTUTHFR HYDROcodone/APAP 10-325MG [[place] 10-325] 1 tab PO Q4HR PRN PRN Reason: Pain Discharge Medication List Lisinopril [Zestril] 5 mg PO HS 02/10/14 [History] Simvastatin [Zocor] 40 mg PO HS 02/10/14 [History] Carvedilol [Coreg] 12.5 mg PO BID 01/31/17 [History] HYDROcodone/APAP 10-325MG [[place] 10-325] 1 tab PO Q4HR PRN 10/25/17 [History] Warfarin [Coumadin] 2.5 mg PO SUTUTHFR 10/25/17 [History] Warfarin [Coumadin] 5 mg PO MOWESA 10/25/17 [History] Magnesium Hydroxide [Milk of Magnesia Concentrate] 2,400 mg PO DAILY PRN ml 01/18 [Rx] Sennosides-Docusate Sodium [Senokot-S] 1 each PO DAILY tab 11/10/17 [Rx] oxyCODONE-APAP 5-325MG [Percocet 5-325 mg] 1 tab PO Q4HR PRN #42 tab 11/10/17 [ Rx] Follow up Appointment(s)/Referral(s): Sandro Busby, ROBE [PHYSICIAN [employer] ENGINE [employer]SEMBLER] - 10 Days (Patient may follow-up with Sandro Busby PA-C or Dr. Jet Florentino at [facility] in 2-3 weeks following discharge. ) Activity/Diet/Wound Care/Special Instructions: 1. Patient may shower with Tegaderm dressing intact. 2. Patient may remove Tegaderm dressing in 2 days and shower without a dressing at that time. 3. Patient should keep Steri-Strips intact and allow them to fall off naturally. 4. Patient should refrain from driving until at least after their first follow- up appointment in the office. 5. Patient should avoid excessive bending, twisting, and lifting; no lifting greater than 10 pounds 6. Take medications as prescribed 7. Do not soak in tub Discharge Disposition: HOME WITH HOME HEALTH SERVICES
--- NOTE | 2017-11-10 09:44 | CDI ---
Last Revision, March 2017 Documentation Clarification Form Date: 11/10/2017 9:12:35 AM From: Anaya Pulliam RN, CCDS Admit Date: 11/06/2017 10:59:00 AM Patient Name: [place] Andres Visit Number: [id number] Discharge Date: ATTENTION: The Clinical Documentation Specialists (CDI) and [facility] Coding Staff appreciate your assistance in clarifying documentation. Please respond to the clarification below the line at the bottom and electronically sign. The CDI & [facility] Coding staff will review the response and follow-up if needed. Please note: Queries are made part of the Legal Health Record. If you have any questions, please contact the author of this message via ITS. Shubham Roberts MD 11/08/17 postop acute abdominal distention with bloating and nausea suspect possible early ileus not ruled out is documented in your consult. Patients Admitting Diagnosis: Spinal stenosis Post-Operative Diagnosis: Same Procedure performed: Laminectomy and decompression and fusion L3 4 L4 5 L5 S1 History/Risk Factors: Hypertension, Back pain, Neurogenic claudication, Lower extremity radiculopathy Clinical Indicators: He was complaining of abdominal pain; develop bloating nausea sensation with heartburn symptoms. Patient stated after his prior back surgery 10 years ago he developed similar episode. Abdomen soft with diffuse tenderness. hypoactive bowel tones mildly distended. CT scan 11/07/17 mildly distended colon, negative for gastric outlet obstruction or any other bowel obstruction. Treatment: Consults: Dr. Gonsales: Patient had a little postoperative bloating. CT scan did not show any type of obstruction. NG tube intermittent suction. IV Fluids In order to accurately reflect this patients severity of illness, please clarify if the post-operative diagnosis is: Ileus ruled out An expected post-procedural or post-surgical condition; Integral to the procedure; Inherent to the procedure; An unexpected post-procedural or post-surgical condition related to surgical care; Other, please specify Unable to determine Please continue to document in your progress notes and discharge summary in order to capture severity of illness and risk of mortality. Include clinical findings that support your diagnosis. MTDD
== END 2017-11-10 12:02 | disposition home or self-care (01) | DRG 460 ==
LOC: 2ORMAIN 10:59 → 3SUR 16:54
PROVIDERS: ADMIT Family Medicine; ATTEND Orthopaedic Surgery Orthopaedic Surgery of the Spine
PROC: 07DS3ZZ Extraction of Vertebral Bone Marrow, Percutaneous Approach (ICD-10-PCS; 2017-11-06)
PROC: 4A11X4G Monitoring of Peripheral Nervous Electrical Activity, Intraoperative, External Approach (ICD-10-PCS; 2017-11-06)
PROC: 30233N0 Transfusion of Autologous Red Blood Cells into Peripheral Vein, Percutaneous Approach (ICD-10-PCS; 2017-11-06)
PROC: 0SG0071 Fusion of Lumbar Vertebral Joint with Autologous Tissue Substitute, Posterior Approach, Posterior Column, Open Approach (ICD-10-PCS; principal; 2017-11-06 13:00)
PROC: 0D9670Z Drainage of Stomach with Drainage Device, Via Natural or Artificial Opening (ICD-10-PCS; 2017-11-07)
DX: M48.062 Spinal stenosis, lumbar region with neurogenic claudication (principal); K56.7 Ileus, unspecified; I48.0 Paroxysmal atrial fibrillation; M96.1 Postlaminectomy syndrome, not elsewhere classified; M43.16 Spondylolisthesis, lumbar region; M51.16 Intervertebral disc disorders with radiculopathy, lumbar region; M51.17 Intervertebral disc disorders with radiculopathy, lumbosacral region; S05.01XA Injury of conjunctiva and corneal abrasion without foreign body, right eye, initial encounter; E78.2 Mixed hyperlipidemia; I10 Essential (primary) hypertension; H25.13 Age-related nuclear cataract, bilateral; I25.10 Atherosclerotic heart disease of native coronary artery without angina pectoris; E78.5 Hyperlipidemia, unspecified; I25.5 Ischemic cardiomyopathy; I25.2 Old myocardial infarction; R12 Heartburn; L20.9 Atopic dermatitis, unspecified; M19.91 Primary osteoarthritis, unspecified site; I71.4 Abdominal aortic aneurysm, without rupture; Z79.01 Long term (current) use of anticoagulants; Z79.899 Other long term (current) drug therapy; Z86.73 Personal history of transient ischemic attack (TIA), and cerebral infarction without residual deficits; Z98.1 Arthrodesis status; Z96.89 Presence of other specified functional implants; Z95.810 Presence of automatic (implantable) cardiac defibrillator; Z87.891 Personal history of nicotine dependence; Z83.3 Family history of diabetes mellitus; Z82.49 Family history of ischemic heart disease and other diseases of the circulatory system
CPT/HCPCS: 72020; 72100; 74019; 74176; 80048; 80053; 82805; 84132; 85025; 85027; 85610; 86850; 86891; 86900; 86901; 94760

== ENCOUNTER → 2018-02-06 | Outpatient (CLI) | payer BC ==
[2018-02-06 13:42] LABS: INR 1.8 (<1.2); Prothrombin Time 16.7 sec (9.0-12.0)
[2018-02-06 13:52] LABS: Anion Gap 10 mmol/L; Blood Urea Nitrogen 22 mg/dL (9-20); Carbon Dioxide 22 mmol/L (22-30); Chloride 109 mmol/L (98-107); Potassium 4.2 mmol/L (3.5-5.1); Sodium 141 mmol/L (137-145)
[2018-02-06 14:12] LABS: HCT 42.4 % (39.0-53.0); MCH 29.8 pg (25.0-35.0); MCHC 33.1 g/dL (31.0-37.0); Mean Platelet Volume 7.1; Platelet Count 221 k/uL (150-450); RBC 4.71 m/uL (4.30-5.90); RDW 13.7 % (11.5-15.5); WBC 8.2 k/uL (3.8-10.6)
== END | disposition home or self-care (01) ==
LOC: LABPAT 12:43
PROVIDERS: ATTEND Internal Medicine Cardiovascular Disease
DX: Z01.812 Encounter for preprocedural laboratory examination (principal); I25.5 Ischemic cardiomyopathy; I47.2 Ventricular tachycardia
CPT/HCPCS: 36415; 80051; 82565; 84520; 85027; 85610

== ENCOUNTER 2018-02-20 10:22 | Day surgery (SDC) | payer BC ==
[2018-02-15 15:54] VITALS: BMI 34.4
[2018-02-20] MEDS ORDERED: SODIUM CHLORIDE 0.9% 1,000 ML IV SCH (10:40)
[2018-02-20] MEDS ORDERED: ceFAZolin IN SWFI 2 GM/20 ML SYRINGE IVP STA (11:05)
[2018-02-20] MEDS ORDERED: ceFAZolin 1,000 MG in SODIUM CHLORIDE 0.9% IRRIGATIO 250 ML IRRIGATION ONE (11:05)
[2018-02-20] MEDS ORDERED: SODIUM CHLORIDE 0.9% 1,000 ML IV ONE (11:06)
[2018-02-20 11:07] LABS: INR 1.2 (<1.2); Prothrombin Time 11.2 sec (9.0-12.0)
[2018-02-20 11:10] VITALS: RESP 16; TEMP 98
[2018-02-20] MEDS ORDERED: LIDOCAINE 1% INJ 10MG/ML (20 ML MDV) ONE (11:20)
[2018-02-20] MEDS ORDERED: KETAMINE 10 MG/ML 20 ML VIAL ONE (11:25)
[2018-02-20] MEDS ORDERED: PROPOFOL 10 MG/ML 20 ML VIAL IV ONE (11:25)
[2018-02-20] MEDS ORDERED: MIDAZOLAM 2 MG/2 ML VIAL ONE (11:25)
[2018-02-20] MEDS ORDERED: fentaNYL (PF) 50 MCG/ML 2 ML AMP ONE (11:25)
[2018-02-20] MEDS ORDERED: LIDOCAINE 1% INJ 10MG/ML (20 ML MDV) SQ ONE (11:32)
[2018-02-20] MEDS ORDERED: HYDROcodone/APAP 5-325MG 1 EACH TAB PO PRN (12:05)
[2018-02-20] MEDS ORDERED: ACETAMINOPHEN TAB 325 MG TAB PO PRN (12:05)
[2018-02-20 16:11] VITALS: BP 113/57; PULSE 60
--- NOTE | 2018-02-20 18:30 | P.PCN ---
Date of Procedure: 02/20/18 Preoperative Diagnosis: History of AICD placement, battery depletion Postoperative Diagnosis: The same Procedure(s) Performed: Generator change Description of Procedure: HISTORY: This is a 62-year-old gentleman with history of ischemic cardiac myopathy, status post dual-chamber AICD implantation. Patient is brought in for generator change because of battery depletion. CONSENT: I have discussed the risks and benefits as related to the above mentioned procedure and both sedation/analgesia as well as necessary blood product administration. The patient has indicated understanding and acceptance of the risks of the procedure discussed. PROCEDURE: Patient was brought to the lab in a fasting state. Patient was given IV Versed and fentanyl for sedation. The skin over the existing pulse generator was infiltrated with lidocaine. An incision was made in the skin and was deepened until the pectoral fascia was exposed. Hemostasis was obtained. The existing pulse generator was pulled out of the pocket. The leads were disconnected and were checked for thresholds. Conscious Sedation: Provided by department of anesthesia THRESHOLDS: ATRIAL: The minimum threshold was 0.75 V at a pulse width of 0.5 ms. P-wave: 6 mV and impedance was 380 ohms VENTRICULAR:. The minimal pacing threshold is 0.5 V at pulse width of 0.5 ms. The impedance is 350 ohms R-wave: 7.1 mV THE LEADS: ATRIAL:. The atrial lead is manufactured by [employer]. The model number is 2088 and the serial number is [id number] VENTRICULAR:. This is manufactured by [employer]. Model number is 7120. And serial number is [id number] THE EXPLANTED DEVICE: This is manufactured by [employer]. Model number is DR 2211-36. In serial number is [id number] THE NEW DEVICE: This is manufactured by [employer]. Model number is CD 2411-36c and the serial number is [id number]. The leads were then connected to a new pulse generator. Pacemaker seems to function normally. DFT TESTING: Patient was given deep anesthesia by department of anesthesia. Ventricular fibrillation was induced with T shock. This was appropriately detected. 10 J shock failed to convert him. 20 J shock converted him to sinus rhythm. No immediate complications. The pocket was irrigated with antibiotics. The pocket was closed in the usual fashion. Pectoral fascia was closed with 2-0 Prolene, the subcutaneous tissue was closed with 3-0 Prolene and the skin was closed with 4-0 Prolene. Patient tolerated the procedure well . Patient will be monitored on the telemetry unit for 2-3 hours. If stable patient be discharged home later today. Programming: The previous programming was reprogrammed without any changes PLAN:. Patient will monitor for the next several hours. If stable patient be discharged home FALLOW UP: With Dr. Dsouza in one week
== END 2018-02-20 15:20 | disposition home or self-care (01) ==
LOC: CATHEP 10:22
PROVIDERS: ATTEND Internal Medicine Cardiovascular Disease
DX: I25.5 Ischemic cardiomyopathy (principal); Z45.02 Encounter for adjustment and management of automatic implantable cardiac defibrillator; I47.2 Ventricular tachycardia; I25.10 Atherosclerotic heart disease of native coronary artery without angina pectoris; Z79.01 Long term (current) use of anticoagulants; I10 Essential (primary) hypertension; E78.49 Other hyperlipidemia; Z72.0 Tobacco use; G45.1 Carotid artery syndrome (hemispheric); Z79.899 Other long term (current) drug therapy
CPT/HCPCS: 93641; 33263; 85610; C1721; J2250; J2001; J3010; J2704; J0690

== ENCOUNTER → 2018-10-15 | Outpatient (CLI) | payer BC | END | disposition home or self-care (01) | LOC: LABWHC1 11:13 | PROVIDERS: ATTEND Internal Medicine Cardiovascular Disease | DX: E78.2 Mixed hyperlipidemia (principal) | CPT/HCPCS: 36415; 80061; 84450; 84460 ==

== ENCOUNTER → 2018-10-18 | Outpatient (CLI) | payer BC ==
[2018-10-18 16:39] LABS: Anion Gap 7.3 mmol/L (4.00-12.00); Carbon Dioxide 24.7 mmol/L (21.6-31.8); Magnesium 2.1 mg/dL (1.5-2.4); Potassium 4.2 mmol/L (3.5-5.5)
== END | disposition home or self-care (01) ==
LOC: LABWHC1 09:47
PROVIDERS: ATTEND Internal Medicine Cardiovascular Disease
DX: I47.2 Ventricular tachycardia (principal)
CPT/HCPCS: 36415; 80051; 83735; 84443

== ENCOUNTER 2018-11-19 09:52 | Day surgery (SDC) | payer BC ==
[2018-11-14 12:35] VITALS: BMI 34.0
[~2018-11-19 09:52] MED LIST changes: -BACITRACIN 50,000 UNIT, POLYMYXIN B 500,000 UNIT in SODIUM CHLORIDE 0.9% IRRIGATIO 1,00... IRRIGATION ONE; -DEXAMETHASONE SOD PHOSPHATE 10 MG/ML 1 ML VIAL IV ONE; +LACTATED RINGERS 1,000 ML IV SCH; -MIDAZOLAM 2 MG/2 ML VIAL IV PRN; -ONDANSETRON 4 MG/2 ML VIAL IVP ONE; -SCOPOLAMINE 1.5MG/72HR PATCH TRANSDERM ONE; -ceFAZolin IN SWFI 2 GM/20 ML SYRINGE IVP ONE
[2018-11-19 10:12] VITALS: TEMP 97.4
[2018-11-19] MEDS ORDERED: LIDOCAINE 1% 20 ML VIAL (10MG/ML) FOR IV START INTRADERMA ONE (10:16)
[2018-11-19] MEDS ORDERED: LIDOCAINE 1% INJ 10MG/ML (20 ML MDV) ONE (11:07)
[2018-11-19] MEDS ORDERED: PROPOFOL 10 MG/ML 20 ML VIAL IV ONE (11:07)
--- NOTE | 2018-11-19 11:15 | P.GSHP ---
History of Present Illness H&P Date: 11/19/18 Chief Complaint: Screening colonoscopy This is a 63-year-old male presents today for screening colonoscopy. Patient denies any significant GI complaints. Past Medical History Past Medical History: Atrial Fibrillation, Coronary Artery Disease (CAD), CVA/TIA, Hyperlipidemia, Hypertension, Myocardial Infarction (MD), Osteoarthritis (OA) Additional Past Medical History / Comment(s): "POST LAMINECTOMY SYNDROME"CHRONIC BACK PAIN, LUMBAR DDD Last Myocardial Infarction Date:: 2009 History of Any Multi-Drug Resistant Organisms: None Reported Past Surgical History: AICD, Back Surgery, Pacemaker Additional Past Surgical History / Comment(s): back surgery x 4 (fusion) LASIX EYE SX. [employer] pacemaker with defibrillator PLACEMENT OF NEURO STIMULATOR AND - had battery change on stimulator 2015, PAIN CLINIC PROCEDURES Past Anesthesia/Blood Transfusion Reactions: Motion Sickness Type of Cardiac Device: AICD Device Placement Date:: 2010 Smoking Status: Current some day smoker - Past Family History Mother Family Medical History: Diabetes Mellitus, Hypertension Father Family Medical History: Myocardial Infarction ([place]) Additional Family Medical History / Comment(s): DAD FROM [place] WHEN PT WAS ONLY 2 MONTHS OLD. Medications and Allergies Home Medications Medication Instructions Recorded Confirmed Type Warfarin [Coumadin] 2.5 mg PO SUTH 10/25/17 11/19/18 History Warfarin [Coumadin] 5 mg PO MOTUWEFRSA 10/25/17 11/19/18 History HYDROcodone/APAP 5-325MG [[place] 1 each PO Q4HR PRN #10 tab 02/20/18 11/19/18 Rx 5-325] Buprenorphine [Buprenorphine 1 patch TRANSDERM TH 11/14/18 11/14/18 History 10MCG/HR] Lisinopril [Zestril] 2.5 mg PO DAILY 11/14/18 11/19/18 History Metoprolol Succinate [Toprol XL] 50 mg PO DAILY 11/14/18 11/19/18 History Simvastatin 80 mg PO HS 11/14/18 11/19/18 History Varenicline [Chantix Continuing 1 mg PO DAILY 11/14/18 11/19/18 History Pack] Allergies Allergy/AdvReac Type Severity Reaction Status Date / Time No Known Allergies Allergy Verified 11/19/18 10:04 Surgical - Exam Vital Signs Temp Pulse Resp BP Pulse Ox 97.4 F L 76 16 138/71 95 11/19/18 10:08 11/19/18 10:08 11/19/18 10:08 11/19/18 10:08 11/19/18 10:08 - General well developed, well nourished, no distress - Eyes PERRL - ENT normal pinna - Neck no masses - Respiratory normal expansion - Cardiovascular Rhythm: regular - Abdomen Abdomen: soft, non tender Assessment and Plan Assessment: We'll perform screening colonoscopy.
--- NOTE | 2018-11-19 11:26 | P.OP ---
Date of Procedure: 11/19/18 Preoperative Diagnosis: Screening colonoscopy Postoperative Diagnosis: Diverticulosis Hemorrhoids Procedure(s) Performed: Colonoscopy Anesthesia: MAC Surgeon: Shubham Dahl Pathology: none sent Condition: stable Disposition: PACU Description of Procedure: Patient's placed on the endoscopy table in the lateral position. He received IV sedation. Digital rectal exam is performed which revealed external hemorrhoids. Flexible colonoscope was then placed patient anus passed throughout the entire colon. The ileocecal valve was visualized. Cecum and ascending colon appeared normal. In the transverse descending colon there is extensive diverticular changes. Scope was then brought back into the rectum and this appeared normal. Scope was withdrawn for patient.
[2018-11-19 11:59] VITALS: BP 153/87; PULSE 80; RESP 15
== END 2018-11-19 12:07 | disposition home or self-care (01) ==
LOC: ORWHC2ENDO 09:52
PROVIDERS: ATTEND Surgery
DX: Z12.11 Encounter for screening for malignant neoplasm of colon (principal); K57.30 Diverticulosis of large intestine without perforation or abscess without bleeding; K64.4 Residual hemorrhoidal skin tags; I48.91 Unspecified atrial fibrillation; I25.10 Atherosclerotic heart disease of native coronary artery without angina pectoris; I10 Essential (primary) hypertension; E78.5 Hyperlipidemia, unspecified; F17.200 Nicotine dependence, unspecified, uncomplicated; Z86.73 Personal history of transient ischemic attack (TIA), and cerebral infarction without residual deficits; I25.2 Old myocardial infarction; M19.90 Unspecified osteoarthritis, unspecified site; M96.1 Postlaminectomy syndrome, not elsewhere classified; Z95.810 Presence of automatic (implantable) cardiac defibrillator; Z96.89 Presence of other specified functional implants; Z97.2 Presence of dental prosthetic device (complete) (partial); Z83.3 Family history of diabetes mellitus; Z82.49 Family history of ischemic heart disease and other diseases of the circulatory system; Z79.01 Long term (current) use of anticoagulants; Z79.891 Long term (current) use of opiate analgesic; Z79.899 Other long term (current) drug therapy
CPT/HCPCS: J2001; J2704; G0121

== ENCOUNTER → 2020-01-29 | Outpatient (CLI) | payer BC ==
[2020-01-29 20:27] LABS: Chol/HDL Ratio 4.57; LDL Cholesterol,Calculated 93.4 mg/dL (0.0-131.0); VLDL Calculation 31.6 mg/dL (5.00-40.00)
== END | disposition home or self-care (01) ==
LOC: LABWHC1 10:08
PROVIDERS: ATTEND Internal Medicine Cardiovascular Disease
DX: E78.2 Mixed hyperlipidemia (principal)
CPT/HCPCS: 36415; 80061; 84450; 84460

== ENCOUNTER → 2020-09-09 | Outpatient (CLI) | payer MEDICARE ==
[2020-09-09 17:06] LABS: African American GFR (CKD) 92.4 (60.0-200.0); Anion Gap 6.1 mmol/L (4.00-12.00); Calcium 9.2 mg/dL (8.7-10.3); Carbon Dioxide 27.9 mmol/L (21.6-31.8); Chol/HDL Ratio 5.06; LDL Cholesterol,Calculated 96.8 mg/dL (0.0-131.0); Non-African American GFR(CKD) 79.7 (60.0-200.0); Potassium 4.1 mmol/L (3.5-5.5); VLDL Calculation 45.2 mg/dL (5.00-40.00)
== END | disposition home or self-care (01) ==
LOC: LABWHC1 08:58
PROVIDERS: ATTEND Internal Medicine Cardiovascular Disease
DX: E78.2 Mixed hyperlipidemia (principal); I47.2 Ventricular tachycardia
CPT/HCPCS: 36415; 80048; 80061; 84443; 84450; 84460

== ENCOUNTER → 2021-09-01 | Outpatient (CLI) | payer MEDICARE ==
[2021-09-01 14:43] LABS: HCT 42.5 % (39.6-50.0); HGB 13.8 g/dL (13.0-17.0); MCHC 32.5 g/dL (32.0-37.0); MCV 95.5 fL (80.0-97.0); Mean Platelet Volume 11.6 fL (9.5-12.2); NRBC Per 100 WBC 0 /100 WBCS (0.0-0.0); Platelet Count 182 X 10*3/uL (140-440); RBC 4.45 X 10*6/uL (4.40-5.60); RDW 12.9 % (11.5-14.5); WBC 6.65 X 10*3/uL (4.50-10.00)
[2021-09-01 15:19] LABS: Chol/HDL Ratio 4.56 Ratio; LDL Cholesterol,Calculated 77.3 mg/dL (0.0-131.0)
[2021-09-01 15:45] LABS: ALT 17 U/L (10-49); AST 26 U/L (14-35); African American GFR (CKD) 106.5 (60.0-200.0); Blood Urea Nitrogen 16.1 mg/dL (9.0-27.0); Carbon Dioxide 22.8 mmol/L (20.0-27.5); Chloride 109 mmol/L (96-109); Non-African American GFR(CKD) 91.9 (60.0-200.0); Potassium 4.2 mmol/L (3.5-5.5); Sodium 143 mmol/L (135-145)
== END | disposition home or self-care (01) ==
LOC: LABWHC1 07:56
PROVIDERS: ATTEND Internal Medicine Cardiovascular Disease
DX: E78.2 Mixed hyperlipidemia (principal)
CPT/HCPCS: 36415; 80051; 80061; 82565; 84443; 84450; 84460; 84520; 85027

== ENCOUNTER → 2022-03-24 | Outpatient (CLI) | payer MEDICARE ==
[2022-03-24 15:05] LABS: HCT 42.7 % (39.6-50.0); HGB 14.4 g/dL (13.0-17.0); MCH 31.6 pg (27.0-32.0); MCHC 33.7 g/dL (32.0-37.0); MCV 93.8 fL (80.0-97.0); Mean Platelet Volume 11.2 fL (9.5-12.2); NRBC Per 100 WBC 0 /100 WBCS (0.0-0.0); Platelet Count 192 X 10*3/uL (140-440); RBC 4.55 X 10*6/uL (4.40-5.60); RDW 13.2 % (11.5-14.5); WBC 8.68 X 10*3/uL (4.50-10.00)
[2022-03-24 15:49] LABS: African American GFR (CKD) 104.2 (60.0-200.0); Anion Gap 7.6 mmol/L (10.00-18.00); Calcium 9.1 mg/dL (8.7-10.3); Carbon Dioxide 26.4 mmol/L (20.0-27.5); Non-African American GFR(CKD) 89.9 (60.0-200.0); Potassium 4.4 mmol/L (3.5-5.5)
== END | disposition home or self-care (01) ==
LOC: LABWHC1 09:30
PROVIDERS: ATTEND Internal Medicine Cardiovascular Disease
DX: I50.22 Chronic systolic (congestive) heart failure (principal)
CPT/HCPCS: 36415; 80048; 83880; 84443; 85027

== ENCOUNTER → 2022-09-07 | Outpatient (CLI) | payer MEDICARE ==
[2022-09-07 16:20] LABS: ALT 20 U/L (10-49); AST 21 U/L (14-35); BUN/Creat Ratio 21.33 Ratio (12.00-20.00); Blood Urea Nitrogen 19.2 mg/dL (9.0-27.0); Calcium 9.1 mg/dL (8.7-10.3); Carbon Dioxide 27.4 mmol/L (21.6-31.8); Chloride 106 mmol/L (96-109); Chol/HDL Ratio 4.04 Ratio; Glucose 105 mg/dL (70-110); LDL Cholesterol,Calculated 64.9 mg/dL (0.0-131.0); Potassium 4.5 mmol/L (3.5-5.5); Sodium 145 mmol/L (135-145)
== END | disposition home or self-care (01) ==
LOC: LABWHC1 07:20
PROVIDERS: ATTEND Internal Medicine Cardiovascular Disease
DX: E78.2 Mixed hyperlipidemia (principal)
CPT/HCPCS: 36415; 80048; 80061; 83880; 84443; 84450; 84460

== ENCOUNTER → 2023-03-06 | Outpatient (CLI) | payer MEDICARE ==
[2023-03-06 16:01] LABS: Chol/HDL Ratio 3.64 Ratio; LDL Cholesterol,Calculated 82.2 mg/dL (0.0-131.0)
[2023-03-06 16:02] LABS: T4, Free (Free Thyroxine) 1.29 ng/dL (0.80-1.80)
[2023-03-06 16:31] LABS: Basophils # (A) 0.04 X 10*3/uL (0.00-0.10); Basophils % (A) 0.5 %; Eosinophils # (A) 0.12 X 10*3/uL (0.04-0.35); Eosinophils % (A) 1.5 %; HGB 15.2 g/dL (13.0-17.0); Lymphocytes # (A) 2.41 X 10*3/uL (0.90-5.00); Lymphocytes % (A) 29.2 %; MCH 31.3 pg (27.0-32.0); MCHC 33.8 g/dL (32.0-37.0); MCV 92.8 FL (80.0-97.0); Mean Platelet Volume 11.6 FL (9.5-12.2); Monocytes # (A) 0.75 X 10*3/uL (0.20-1.00); Monocytes % (A) 9.1 %; NRBC Per 100 WBC 0 X 10*3/uL (0.00-0.01); Neutrophils # (A) 4.91 X 10*3/uL (1.80-7.70); Neutrophils % (A) 59.5 %; Platelet Count 175 X 10*3/uL (140-440); RBC 4.85 X 10*6/uL (4.40-5.60); RDW 12.7 % (11.5-14.5); WBC 8.25 X 10*3/uL (4.50-10.00)
== END | disposition home or self-care (01) ==
LOC: LABWHC1 10:09
PROVIDERS: ATTEND Family Medicine
DX: I49.9 Cardiac arrhythmia, unspecified (principal); I25.10 Atherosclerotic heart disease of native coronary artery without angina pectoris; E78.5 Hyperlipidemia, unspecified; Z86.73 Personal history of transient ischemic attack (TIA), and cerebral infarction without residual deficits
CPT/HCPCS: 36415; 80061; 84153; 84439; 84443; 85025

== ENCOUNTER 2024-01-04 06:30 | Day surgery (SDC) | payer MEDICARE ==
[2023-12-28 15:40] VITALS: BMI 32.8
[~2024-01-04 06:30] MED LIST changes: -LACTATED RINGERS 1,000 ML IV SCH; +LIDOCAINE 1% (10MG/ML) FOR IV START INTRADERMA PRN; -LIDOCAINE 1% 20 ML VIAL (10MG/ML) FOR IV START INTRADERMA PRN
[2024-01-04] MEDS: IV FLUID CONTINUATION 1,000 ML IV ONE ×2 (07:07→07:38)
[2024-01-04] MEDS: LACTATED RINGERS 1,000 ML IV SCH (07:11)
[2024-01-04 07:23] VITALS: TEMP 98.2
[2024-01-04 07:25] LABS: INR 1.4 (<1.2); Prothrombin Time 14.5 sec (10.0-12.5)
[2024-01-04] MEDS ORDERED: PROPOFOL 10 MG/ML 20 ML VIAL IV ONE (07:41)
--- NOTE | 2024-01-04 07:44 | P.GSHP ---
History of Present Illness H&P Date: 01/04/24 Chief Complaint: Screening colonoscopy This 68-year-old male presents today for screening colonoscopy. Patient denies any significant GI complaints. Past Medical History Past Medical History: Atrial Fibrillation, Coronary Artery Disease (CAD), Hyperlipidemia, Hypertension, Myocardial Infarction ([place]), Osteoarthritis (OA) Additional Past Medical History / Comment(s): "POST LAMINECTOMY SYNDROME"CHRONIC BACK PAIN, LUMBAR DDD, Last Myocardial Infarction Date:: 2009 History of Any Multi-Drug Resistant Organisms: None Reported Past Surgical History: AICD, Back Surgery, Pacemaker Additional Past Surgical History / Comment(s): back surgery x 5 (fusion) LASIX EYE SX. [employer] pacemaker with defibrillator , PLACEMENT OF NEURO STIMULATOR AND - had battery change on stimulator 2015, PAIN CLINIC PROCEDURES, COLONOSCOPY, Past Anesthesia/Blood Transfusion Reactions: No Reported Reaction Type of Cardiac Device: AICD Device Placement Date:: 2010 Smoking Status: Current every day smoker - Past Family History Mother Family Medical History: Diabetes Mellitus, Hypertension Father Family Medical History: Myocardial Infarction ([place]) Additional Family Medical History / Comment(s): DAD FROM [place] WHEN PT WAS ONLY 2 MONTHS OLD. Medications and Allergies Home Medications Medication Instructions Recorded Confirmed Type Warfarin [Coumadin] 2.5 mg PO SUTUTH 10/25/17 01/04/24 History Warfarin [Coumadin] 5 mg PO MOWEFRSA 10/25/17 01/04/24 History Simvastatin [Zocor] 80 mg PO HS 11/14/18 01/04/24 History HYDROcodone/APAP 5-325MG [[place] 1 each PO Q6HR PRN 12/28/23 01/04/24 History 5-325] Metoprolol Succinate [Toprol XL] 100 mg PO HS 12/28/23 01/04/24 History lisinopriL [Zestril] 5 mg PO HS 12/28/23 01/04/24 History Allergies Allergy/AdvReac Type Severity Reaction Status Date / Time No Known Allergies Allergy Verified 01/04/24 07:17 Surgical - Exam Vital Signs Temp Pulse Resp BP Pulse Ox 98.2 F 66 18 136/82 95 01/04/24 07:22 01/04/24 07:22 01/04/24 07:22 01/04/24 07:22 01/04/24 07:22 - General well developed, well nourished, no distress - Eyes PERRL - ENT normal pinna - Neck no masses - Respiratory normal expansion - Cardiovascular Rhythm: regular - Abdomen Abdomen: soft, non tender Results - Labs Abnormal Lab Results - Last 24 Hours (Table) 01/04/24 Range/Units 07:07 PT 14.5 H (10.0-12.5) sec INR 1.4 H (<1.2) Assessment and Plan Assessment: Will perform screening colonoscopy
--- NOTE | 2024-01-04 08:02 | P.OP ---
Date of Procedure: 01/04/24 Preoperative Diagnosis: Screening colonoscopy Postoperative Diagnosis: Diverticulosis Procedure(s) Performed: Colonoscopy Anesthesia: MAC Surgeon: Shubham Dahl Pathology: none sent Condition: stable Disposition: PACU Description of Procedure: The patient was placed on the endoscopy table lateral position. He received IV sedation. Digital rectal exams performed. This revealed no abnormality. Flex colonoscope was then placed patient anus passed throughout the entire colon. The ileocecal valve was visualized. The cecum, ascending transverse colon appeared normal. The descending sigmoid colon there was moderate diverticulosis. The scope was brought back to the rectum this appeared normal. Scope withdrawn for patient.
[2024-01-04 08:06] VITALS: RESP 16
[2024-01-04 08:29] VITALS: BP 104/62; PULSE 63
== END 2024-01-04 08:44 | disposition home or self-care (01) ==
LOC: ORWHC2ENDO 06:30
PROVIDERS: ATTEND Surgery
DX: Z12.11 Encounter for screening for malignant neoplasm of colon
CPT/HCPCS: 85610

== ENCOUNTER → 2024-05-28 | Outpatient (CLI) | payer MEDICARE ==
[2024-05-28 15:32] LABS: ALT 16 U/L (10-49); AST 23 U/L (14-35); BUN/Creat Ratio 18.67 Ratio (12.00-20.00); Blood Urea Nitrogen 16.8 mg/dL (9.0-27.0); Calcium 9.1 mg/dL (8.7-10.3); Carbon Dioxide 25.6 mmol/L (21.6-31.8); Chloride 109 mmol/L (96-109); Chol/HDL Ratio 4.21 Ratio; Glucose 97 mg/dL (70-110); LDL Cholesterol,Calculated 88.3 mg/dL (0.0-131.0); Potassium 4.5 mmol/L (3.5-5.5); Sodium 145 mmol/L (135-145)
[2024-05-28 17:10] LABS: NT-Pro-B-Type Natriuretic Pept 759 pg/mL (0-125)
== END | disposition home or self-care (01) ==
LOC: LABWHC1 08:24
PROVIDERS: ATTEND Internal Medicine Cardiovascular Disease
DX: E78.2 Mixed hyperlipidemia (principal); I50.22 Chronic systolic (congestive) heart failure
CPT/HCPCS: 36415; 80048; 80061; 83880; 84450; 84460

== ENCOUNTER → 2024-09-20 | Outpatient (CLI) | payer MEDICARE ==
[2024-09-20 19:09] LABS: Blood Urea Nitrogen 15.4 mg/dL (9.0-27.0); Carbon Dioxide 21.8 mmol/L (21.6-31.8); Chloride 110 mmol/L (96-109); Glucose 97 mg/dL (70-110); Magnesium 2.3 mg/dL (1.5-2.4); Potassium 4.2 mmol/L (3.5-5.5); Sodium 141 mmol/L (135-145)
[2024-09-20 19:10] LABS: Calcium 8.8 mg/dL (8.7-10.3)
== END | disposition home or self-care (01) ==
LOC: LABWHC1 14:48
PROVIDERS: ATTEND Internal Medicine Cardiovascular Disease
DX: I49.3 Ventricular premature depolarization (principal)
CPT/HCPCS: 36415; 80048; 83735